=== PATIENT | male | born 1960 | race Hispanic/Latino ===

== ENCOUNTER 2016-12-18 13:58 | Emergency (ER) | payer BC, OTHER ==
[2016-12-18] MEDS ORDERED: Dexamethasone 4 mg/ml Vial ONE (14:30)
[2016-12-18] MEDS ORDERED: Ketorolac Tromethamine 60 MG/2 ML VIAL ONE (14:30)
== END 2016-12-18 14:53 | disposition home or self-care (01) ==
LOC: ERS 13:58
DX: M54.5 Low back pain (principal); I10 Essential (primary) hypertension; Z79.899 Other long term (current) drug therapy
CPT/HCPCS: 96372; J1100; J1885

== ENCOUNTER 2017-08-03 00:18 | Inpatient (IN) | payer BC ==
[2017-08-03] MEDS ORDERED: Heparin 10,000 UNITS/1 ML VIAL ONE ×2 (00:42→01:58)
[2017-08-03] MEDS ORDERED: Lidocaine 1% (PF) 30 ML VIAL ONE (00:43)
[2017-08-03] MEDS ORDERED: Ondansetron ODT 8 MG TAB ONE (00:44)
[2017-08-03] MEDS ORDERED: Ondansetron ODT 4 MG TAB ONE (00:44)
[2017-08-03 00:49] LABS: Prothrombin Time 13.7 SEC (12.0-14.7)
[2017-08-03 00:50] LABS: #Basophils 0.1 thou/uL (0.0-0.2); #Eosinphils 0.2 thou/uL (0.0-0.7); #Lymphocytes 3.9 thou/uL (1.20-3.40); #Monocytes 0.8 thou/uL (0.11-0.59); #Neutrophils 3.9 thou/uL (1.40-6.50); %Basophils 1.2 % (0.0-1.0); %Eosinophils 2.4 % (0.0-10.0); %Lymphocytes 43.4 % (21.0-51.0); %Monocytes 9.2 % (0.0-10.0); %Neutrophils 43.8 % (42.0-75.0); Hemoglobin 16.4 g/dL (14.0-18.0); Mean Corpuscular HGB CONC 34.4 g/dL (32.0-36.0); Mean Corpuscular Hemoglobin 30.5 pg (27.0-31.0); Mean Corpuscular Volume 88.6 fl (80.0-94.0); PTT 28.2 SEC (22.9-36.1); Platelet Count 244 thou/uL (130-400); RBC Distribution Width 12.4 % (11.5-14.5); Red Blood Cell (RBC) Count 5.39 mill/uL (4.70-6.10); White Blood Cell (WBC) Count 8.9 thou/uL (4.8-10.8)
[2017-08-03 00:52] LABS: ALT (SGPT) 32 U/L (8-55); AST (SGOT) 21 U/L (5-34); Albumin 4.4 g/dL (3.5-5.0); Alkaline Phosphatase 80 U/L (40-150); Anion Gap 15 mmol/L (10-20); BUN (Urea Nitrogen) 25 mg/dL (8.4-25.7); Bilirubin, Total 0.4 mg/dL (0.2-1.2); Calc. Creatinine Clearance 0 mL/min (70-130); Calcium 9.4 mg/dL (7.8-10.44); Carbon Dioxide 20 mmol/L (22-29); Chloride 107 mmol/L (98-107); Estimated GFR-MDRD 61; Globulin 3.3 g/dL (2.4-3.5); Glucose 137 mg/dL (70-105); Lipase 31 U/L (8-78); Potassium 4.1 mmol/L (3.5-5.1); Protein, Total 7.7 g/dL (6.0-8.3); Sodium 138 mmol/L (136-145)
[2017-08-03 00:55] LABS: CKMB 0.7 ng/mL (0-6.6); Troponin I 0.037 ng/mL (< 0.028)
[2017-08-03] MEDS ORDERED: DOPamine 400 MG/D5W 250 ML 250 ML ONE (00:56)
[2017-08-03] MEDS ORDERED: Fentanyl 250 MCG/5 ML VIAL ONE ×2 (01:25→05:15)
[2017-08-03] MEDS ORDERED: Midazolam HCl 5 mg/5 ml Vial ONE (01:25)
[2017-08-03] MEDS ORDERED: Papaverine 60 MG/2 ML VIAL ONE (01:29)
[2017-08-03] MEDS ORDERED: Calcium Chloride 1 GM/10 ML Abboject SYRINGE ONE (01:29)
[2017-08-03] MEDS ORDERED: Thrombin 5000 UNITS/5 ML VIAL ONE (01:29)
[2017-08-03] MEDS ORDERED: Sodium Bicarb 50 MEQ/50 ML Abboject 8.4% SYRINGE ONE (01:29)
[2017-08-03] MEDS ORDERED: Heparin 5,000 UNITS/ML VIAL ONE (01:29)
[2017-08-03] MEDS ORDERED: Sodium Chloride 0.9% 1,000 ML BAG ONE (02:00)
[2017-08-03] MEDS ORDERED: Nitroglycerin 0.4 MG TAB (25 Tab Bottle) ONE (02:00)
[2017-08-03] MEDS ORDERED: Heparin 10,000 UNITS/ 10 ML VIAL ONE (02:00)
[2017-08-03] MEDS ORDERED: Phenylephrine 0.25% Nasal Spray 15 ML BOT ONE (04:12)
[2017-08-03] MEDS ORDERED: Phenylephrine 1% Nasal Spray 15 ML BOT ONE (04:12)
[2017-08-03] MEDS ORDERED: Phenylephrine HCL 10 MG/ML VIAL ONE (04:12)
[2017-08-03] MEDS ORDERED: Albumin 5% 500 ML ONE (04:14)
[2017-08-03] MEDS ORDERED: Rocuronium Bromide 50 MG/5 ML VIAL ONE (04:50)
[2017-08-03] MEDS ORDERED: Guaifenesin DM 100-10/5 ML UDCUP PO PRN (05:20)
[2017-08-03] MEDS ORDERED: Magnesium 2 GM/NS 0.9% 100 ML 2 GM in Premix Bag 1 BAG IVPB SCH (05:20)
[2017-08-03] MEDS ORDERED: Mag-Al 1200 mg/1200 mg/30 ML UDCUP PO PRN (05:20)
[2017-08-03] MEDS ORDERED: Hetastarch 6% 500 ML 500 ML IVPB PRN (05:20)
[2017-08-03] MEDS ORDERED: Post-Op Insulin Drip Protocol IVPB ONE (05:20)
[2017-08-03] MEDS ORDERED: Bisacodyl 5 MG TAB PO PRN (05:20)
[2017-08-03] MEDS ORDERED: Ondansetron HCl/PF 4 MG/2 ML Vial IVP PRN (05:20)
[2017-08-03] MEDS ORDERED: Promethazine HCl 25 MG/ML VIAL IM PRN (05:20)
[2017-08-03] MEDS ORDERED: Nitroglycerin 50 MG/250 ML BOT 250 ML IVPB PRN (05:20)
[2017-08-03] MEDS ORDERED: hydrALAZINE 20 MG/ML VIAL SLOW IVP PRN (05:20)
[2017-08-03] MEDS ORDERED: Bisacodyl 10 MG SUPP PR PRN (05:20)
[2017-08-03] MEDS ORDERED: Acetaminophen 325 MG TAB PO PRN (05:20)
[2017-08-03] MEDS ORDERED: Fentanyl 100 MCG/2 ML VIAL SLOW IVP PRN ×2 (05:20)
[2017-08-03] MEDS ORDERED: DOPamine 400 MG/D5W 250 ML 250 ML IVPB PRN (05:20)
[2017-08-03] MEDS ORDERED: Dextrose 5% in Water 1,000 ML IV PRN (05:52)
[2017-08-03] MEDS ORDERED: Dextrose 50% Abboject 50 ML SYRINGE SLOW IVP PRN (05:52)
[2017-08-03 05:58] LABS: INR-International Normal Ratio 1.4; PTT 36.5 SEC (22.9-36.1)
[2017-08-03 05:59] VITALS: BMI 31.5
[2017-08-03 06:02] LABS: Anion Gap 11 mmol/L (10-20); BUN (Urea Nitrogen) 22 mg/dL (8.4-25.7); Calc. Creatinine Clearance 104 mL/min (70-130); Carbon Dioxide 23 mmol/L (22-29); Chloride 112 mmol/L (98-107); Estimated GFR-MDRD 76; Glucose 153 mg/dL (70-105); Sodium 142 mmol/L (136-145)
[2017-08-03 06:17] LABS: Band 29 % (5-11); Hemoglobin 14.7 g/dL (14.0-18.0); Lymphocytes 13 % (21-51); MDiff Complete? YES; Mean Corpuscular HGB CONC 33.7 g/dL (32.0-36.0); Mean Corpuscular Hemoglobin 30.2 pg (27.0-31.0); Mean Corpuscular Volume 89.5 fl (80.0-94.0); Mean Platelet Volume 7.6 fL (7.4-10.4); Monocytes 1 % (0-10); Neutrophil 57 % (42-75); PLT Morphology Comment Appears Adequate; Platelet Count 174 thou/uL (130-400); RBC Distribution Width 12.3 % (11.5-14.5); Red Blood Cell (RBC) Count 4.87 mill/uL (4.70-6.10); White Blood Cell (WBC) Count 22.4 thou/uL (4.8-10.8)
[2017-08-03] MEDS: Insulin Regular 300 UNITS/3 ML VIAL SC PRN ×5 (06:19→23:17)
[2017-08-03] MEDS: CEFAZOLIN/Water 2 GM/20 ML SYRINGE SLOW IVP SCH ×3 (06:21→21:51)
[2017-08-03] MEDS: Lactated Ringer's 1,000 ML IV SCH ×3 (06:25→22:23)
[2017-08-03] MEDS: Potassium Chloride 20 MEQ/100 ML PREMIX BAG IVPB PRN (06:45)
--- NOTE | 2017-08-03 08:06 | OP ---
PREOPERATIVE DIAGNOSIS: Acute myocardial infarction cardiogenic shock. PROCEDURE PERFORMED: Coronary artery bypass graft x3; good quality saphenous vein to the ramus, 2 mm ; the first diagonal, 2 mm; the second diagonal, 2 mm. The distal LAD was too small to graft and masha eared to be less than 1 mm where it became extra myocardial. SURGEON: Beny Leyva M.D. INSURANCE FOLLOW UP SPECIALIST: Dr. Travis. TRANSFUSION: None. PROCEDURE IN DETAIL: After emergently taking the patient from the cardiac catheterization lab with r ight femoral intraaortic balloon pump in place, he was anesthetized, prepped and draped and a midline sternotomy incision carried out. Dr. Travis did an open left greater saphenous vein harvest. After opening the pericardium, the patient was heparinized. Aorta and right atrium were cannulated. Cardi opulmonary bypass was started and vessels were inspected for grafting. The aorta was cross-clamped a nd a liter of cold blood cardioplegia given through the aortic root. Initially, the LAD was inspecte d and dissected out partially dividing some muscle fibers and at that point, it was felt that risk of cavity entry was a real concern and that was abandoned at that point. Individually, the first diago nal, the ramus extending onto the first branch and then the second diagonal were opened and end-to-si de anastomosis completed. Crossclamp was removed and the partial occluding clamp placed, and 3 proxi mal anastomoses performed on the aortic root and marked with rings. The patient was then weaned from cardiopulmonary bypass, cannulas removed. Protamine given systemically and aortic cannulation site secured with a 4-0 Prolene suture. Mediastinal drains x2 were placed following which the sternum was reapproximated with #7 interrupted wire using vancomycin paste on the sternal edges, platelet rich b lood, and platelet-poor plasma. Subcutaneous tissue and skin were closed in layers. The patient is to be taken to the ICU in guarded condition.
[2017-08-03 08:17] LABS: Actual Bicarbonate (HCO3a) 22.9 mEq/L (22-28); Base Excess (BEa) -2.9 mEq/L (-2.0 to +3.0); CO2 Tension 43.5 mmHg (35.0-45.0); Calcium, Ionized 1.1 mmol/L (1.12-1.30); Hematocrit-ABG 43.9 % (42.0-52.0); Hemoglobin (Hb) 14.9 g/dL (14.0-18.0); O2 Tension (PaO2) 183.6 mmHg (80.0-100.0); Puncture Site ALINE; pH, Arterial 7.34 (7.35-7.45)
[2017-08-03 08:18] LABS: ALV-art Gradient 475.025 (0-20)
[2017-08-03] MEDS: Norepinephrine 8 MG/0.9% NS 250 ML IVPB PRN (08:29)
[2017-08-03] MEDS: Aspirin 325 MG TAB PO SCH (08:53)
[2017-08-03] MEDS: Famotidine/PF 20 mg/2ml Vial SLOW IVP SCH ×2 (09:23→20:09)
--- NOTE | 2017-08-03 09:31 | HP ---
HISTORY: Mr. Ramon Alcaraz is a 57-year-old male who denies any previous cardiac problems or chest discomfort. Tonight at approximately midnight, he was going to bed and he had onset of crushing chest pressure. When he came to the emergency room, he was pale and diaphoretic. Upon my arrival, his pressure was in the 50s. Dopamine was being started. He then received heparin 5000 units. Patient was very uncooperative and not much history or discussion could be held. The decision was made to take him emergently to the [facility]. PAST MEDICAL HISTORY: Hypertension. He denied any history of diabetes or hypercholesterolemia. MEDICATIONS: Unknown blood pressure medicine. ALLERGIES: None. OPERATIONS: None. SOCIAL HISTORY: Denies smoking or any illicit drugs or alcohol. FAMILY HISTORY: Father of GA at age 80. REVIEW OF SYSTEMS: Unable to obtain due to the patient's critical status. PHYSICAL EXAMINATION: VITAL SIGNS: Blood pressure was in the 50s, pulse of 100. HEENT: PERRL. CHEST: Clear. CARDIAC: S1, S2 normal without any S3, S4 or murmurs. ABDOMEN: Normal bowel sounds. EXTREMITIES: Revealed no edema. NEUROLOGIC: Grossly intact. LABORATORY DATA AND IMAGING: EKG revealed initially [address] segment elevation, V3 through V5. Another EKG revealed 9 mm of elevation in V2, 7-8 mm in V3 through V5, one in L, one with severe ST segment depression in II, III, and F. IMPRESSION: 1. Acute anterolateral myocardial infarction. 2. Hypertension. 3. Positive family history. PLAN: Patient was very uncooperative. No discussion could be held regarding catheterizations, felt best with his pressure in the 50s systolic to go immediately to the [facility]. IZABELLA
--- NOTE | 2017-08-03 10:01 | RAD ---
PORTABLE CHEST: Date: 08/03/17 HISTORY: Postop open heart surgery. COMPARISON: Earlier exam from same date. FINDINGS: Endotracheal tube in satisfactory position. Right subclavian line overlies the right atrium. Postop s ternotomy changes are seen. Heart size is borderline. Mild vascular engorgement. No overt edema. IMPRESSION: 1. Postop sternotomy change. 2. Endotracheal tube in satisfactory position. POS: [facility]
--- NOTE | 2017-08-03 10:21 | RAD ---
PORTABLE CHEST: Date: 08/03/17 HISTORY: Chest pain. COMPARISON: 04/08/16 study. FINDINGS: Heart size and mediastinum are within normal limits. Lungs are clear of infiltrates. No significant b hannah findings. IMPRESSION: No active intrathoracic disease. POS: [facility]
[2017-08-03 10:59] LABS: Cardiac Risk 4.6 (Less than 4.5)
[2017-08-03 11:12] LABS: CKMB 48.8 ng/mL (0-6.6); Troponin I 6.202 ng/mL (< 0.028)
[2017-08-03] MEDS ORDERED: Iopamidol 370 76% 100 ML VIAL ONE (11:31)
[2017-08-03] MEDS ORDERED: Succinylcholine Chloride 20 MG/ML 10 ml SYRINGE FS ONE (11:54)
[2017-08-03] MEDS ORDERED: ePHEDrine/0.9% NaCl/PF SYRINGE 50 mg/10 ml ONE (11:54)
[2017-08-03] MEDS ORDERED: PHENYLEPHRINE-NS 100 MCG/ML 10 ML SYRINGE ONE (11:54)
[2017-08-03] MEDS ORDERED: Magnesium 5 GM/10 ML VIAL ONE (11:54)
[2017-08-03] MEDS ORDERED: Potassium Chlo 10 mEq/5 ml Syr ONE (11:54)
[2017-08-03] MEDS ORDERED: Lidocaine 2% PF 100 mg/5 ml Syringe ONE (11:54)
[2017-08-03] MEDS ORDERED: Mannitol 12.5 GM/50 ML ONE (11:54)
[2017-08-03] MEDS ORDERED: EPINEPHrine 1 MG/ML AMP ONE (11:54)
[2017-08-03] MEDS ORDERED: Heparin 30,000 units/30 ml VIAL ONE (11:54)
[2017-08-03] MEDS ORDERED: Cardioplegic Soln 1,000 ML BAG ONE (11:54)
[2017-08-03] MEDS ORDERED: Protamine Sulfate 250 MG/25 ML VIAL ONE (11:54)
[2017-08-03] MEDS ORDERED: Sodium Bicarb 50 MEQ/50 ML VIAL ONE (11:54)
--- NOTE | 2017-08-03 12:10 | CON ---
DATE OF CONSULTATION: 08/03/2017 Forty-five minutes critical care time. CONSULTING PHYSICIAN: Dr. Gaspar. REASON FOR CONSULTATION: Postoperative ventilator management. HISTORY OF PRESENT ILLNESS: This is a pleasant 57-year-old male who underwent emergent coronary vesna ry bypass grafting surgery last night for multivessel coronary disease. He was left on a balloon pum p after surgery. He was also left intubated after surgery. He is currently awake and able to follow commands and the plan is to go ahead and wean him. PAST MEDICAL HISTORY: Hypertension. PAST SURGICAL HISTORY: None. MEDICATIONS: He was on some type of blood pressure medication prior to admission. ALLERGIES: None. SOCIAL HISTORY: Nonsmoker, does not consume alcohol. FAMILY MEDICAL HISTORY: Remarkable for coronary disease in his father. REVIEW OF SYSTEMS: Unobtainable as the patient is currently intubated on mechanical ventilation. PHYSICAL EXAMINATION: VITAL SIGNS: Temperature 98.8, pulse 107, blood pressure 100/54. GENERAL: He is currently on no vasopressor therapy. HEENT: Unremarkable. NECK: No JVD. LUNGS: Clear without wheezing or rhonchi. CARDIAC: S1, S2 regular. His heart sounds are somewhat muffled by the balloon pump. ABDOMEN: Soft, obese, nontender. EXTREMITIES: No clubbing, cyanosis, or edema. NEUROLOGIC: He moves all 4 extremities. His x-ray shows properly placed endotracheal tube. He has a right subclavian triple lumen catheter a nd his lung field shows some mild pulmonary vascular congestion. LABORATORY X-RAY FINDINGS: White blood cell count 22.4, hematocrit 43.6, platelet count 174. INR 1. 4, PTT 36.5, pH 7.34, pCO2 43, pO2 183 on SIMV rate 12, tidal of 550, PEEP 5, pressure support 10, Fi O2 100%. Sodium 142, potassium 4, chloride 112, CO2 23, BUN 22, creatinine 1.0, glucose 153. ASSESSMENT: 1. Postoperative respiratory failure. 2. Status post emergent coronary bypass grafting surgery. PLAN: Dr. Leyva has given okay to wean the patient and extubate per protocol. The balloon pump will likely be removed afterward. I have reviewed the orders in the chart and I agree with current manag ement. We will follow.
[2017-08-03 12:22] LABS: Hemoglobin 13.6 g/dL (14.0-18.0)
[2017-08-03 12:32] LABS: Potassium 4.4 mmol/L (3.5-5.1)
[2017-08-03 12:49] LABS: CKMB 120.7 ng/mL (0-6.6); Troponin I 23.282 ng/mL (< 0.028)
[2017-08-03 15:59] LABS: Actual Bicarbonate (HCO3a) 21.4 mEq/L (22-28); Base Excess (BEa) -2.5 mEq/L (-2.0 to +3.0); CO2 Tension 34.1 mmHg (35.0-45.0); O2 Tension (PaO2) 86.1 mmHg (80.0-100.0); pH, Arterial 7.42 (7.35-7.45)
[2017-08-03 16:00] LABS: Calcium, Ionized 1.1 mmol/L (1.12-1.30)
[2017-08-03 16:01] LABS: ALV-art Gradient 156.475 (0-20); Puncture Site ALINE
[2017-08-03] MEDS: HYDROcodone/Acetaminophen 5/325 mg Tablet PO PRN (19:20)
[2017-08-03 20:12] LABS: CKMB 87.4 ng/mL (0-6.6); Troponin I 40.195 ng/mL (< 0.028)
[2017-08-03] MEDS ORDERED: Simvastatin 20 MG TAB PO SCH (21:00)
[2017-08-04 04:59] LABS: #Lymphocytes 1.4 thou/uL (1.20-3.40); #Monocytes 0.9 thou/uL (0.11-0.59); #Neutrophils 8.6 thou/uL (1.40-6.50); %Basophils 0.2 % (0.0-1.0); %Eosinophils 0.2 % (0.0-10.0); %Lymphocytes 12.9 % (21.0-51.0); %Monocytes 8.1 % (0.0-10.0); %Neutrophils 78.5 % (42.0-75.0); Hemoglobin 11.9 g/dL (14.0-18.0); Mean Corpuscular HGB CONC 34.4 g/dL (32.0-36.0); Mean Corpuscular Volume 90.2 fl (80.0-94.0); Mean Platelet Volume 8.3 fL (7.4-10.4); Platelet Count 128 thou/uL (130-400); RBC Distribution Width 12.6 % (11.5-14.5); Red Blood Cell (RBC) Count 3.85 mill/uL (4.70-6.10)
[2017-08-04 06:07] LABS: Anion Gap 10 mmol/L (10-20); BUN (Urea Nitrogen) 16 mg/dL (8.4-25.7); Calc. Creatinine Clearance 134 mL/min (70-130); Carbon Dioxide 21 mmol/L (22-29); Chloride 111 mmol/L (98-107); Estimated GFR-MDRD Greater than 90; Glucose 128 mg/dL (70-105); Sodium 138 mmol/L (136-145)
[2017-08-04] MEDS: Insulin Regular 300 UNITS/3 ML VIAL SC PRN (06:11)
[2017-08-04] MEDS: Potassium Chloride 20 MEQ/100 ML PREMIX BAG IVPB PRN (06:11)
[2017-08-04] MEDS: HYDROcodone/Acetaminophen 5/325 mg Tablet PO PRN ×2 (06:30→18:43)
[2017-08-04] MEDS: Lactated Ringer's 1,000 ML IV SCH ×2 (06:43→18:00)
--- NOTE | 2017-08-04 08:21 | PRG ---
DATE OF SERVICE: 08/04/2017 SUBJECTIVE: Mr. Alcaraz was extubated yesterday. He still has a balloon pump in, but is currently 1-3 . It is anticipated that will be removed later today. PHYSICAL EXAMINATION: VITAL SIGNS: On exam, temperature is 99.5, pulse 100, blood pressure 123/72. A 24-hour intake 4500 and output 2395. HEENT: Unremarkable. NECK: No JVD. LUNGS: Diminished breath sounds in the bases. CARDIOVASCULAR: S1 and S2, regular, no murmur. Balloon pump sounds noted. ABDOMEN: Soft, obese, nontender. EXTREMITIES: No clubbing or cyanosis. Trace edema. LABORATORY DATA: Chest x-ray demonstrates some mild pulmonary edema with bilateral pleural effusions . White blood cell count 11, hematocrit 34.7, platelet count 128. Sodium 130, potassium 4, chloride 111, CO2 of 21, BUN 16, creatinine 0.8, glucose 128. ASSESSMENT: 1. Status post coronary artery bypass grafting surgery. 2. Hyperglycemia. 3. Myocardial infarction. 4. Pulmonary edema. PLAN: The patient will need some diuresis when it is considered safe from a surgical standpoint. He has borderline O2 sats on the supplemental oxygen. I think this will improve as his pulmonary edema improves. A balloon pump should be pulled later today.
--- NOTE | 2017-08-04 09:06 | RAD ---
PORTABLE AP CHEST XRAY: DATE: 08/04/17. HISTORY: Post open heart surgery. COMPARISON: 08/03/17. FINDINGS: The endotracheal tube has been removed. The right subclavian central venous catheter and mediastinal drains remain in place and unchanged in position. There are small bilateral pleural effusions great er on the right. Cardiac silhouette is magnified by projection but overall stable in size given diff erences in technique. Central pulmonary vasculature is mildly prominent. Postsurgical changes relat ed to CABG are again noted. Metallic density again overlies the proximal descending thoracic aorta w hich may represent intraaortic balloon pump. No other interval change. IMPRESSION: 1. Interval removal of endotracheal tube. Remaining lines and tubes are stable in position. 2. Suggestion of small bilateral pleural effusions with associated atelectasis. 3. Mild prominence of the central pulmonary vasculature. POS: [facility]
[2017-08-04] MEDS: Aspirin 325 MG TAB PO SCH (09:41)
[2017-08-04] MEDS: Famotidine 20 MG TAB PO SCH ×2 (09:43→20:28)
[2017-08-04] MEDS ORDERED: DOBUTamine 500 mg/250 ml 500 MG in Premix Bag 1 BAG IVPB SCH (12:45)
[2017-08-04] MEDS: Norepinephrine 8 MG/0.9% NS 250 ML IVPB PRN (18:01)
[2017-08-04] MEDS: Atorvastatin Calcium 20 MG TAB PO SCH (20:28)
[2017-08-05 03:50] LABS: #Eosinphils 0.1 thou/uL (0.0-0.7); #Lymphocytes 1.4 thou/uL (1.20-3.40); #Monocytes 1.2 thou/uL (0.11-0.59); #Neutrophils 9.7 thou/uL (1.40-6.50); %Basophils 0.3 % (0.0-1.0); %Eosinophils 0.6 % (0.0-10.0); %Lymphocytes 10.9 % (21.0-51.0); %Monocytes 9.8 % (0.0-10.0); %Neutrophils 78.4 % (42.0-75.0); Hemoglobin 11.8 g/dL (14.0-18.0); Mean Corpuscular HGB CONC 35.3 g/dL (32.0-36.0); Mean Corpuscular Hemoglobin 31.6 pg (27.0-31.0); Mean Corpuscular Volume 89.6 fl (80.0-94.0); Mean Platelet Volume 7.6 fL (7.4-10.4); Platelet Count 111 thou/uL (130-400); RBC Distribution Width 12.1 % (11.5-14.5); Red Blood Cell (RBC) Count 3.74 mill/uL (4.70-6.10); White Blood Cell (WBC) Count 12.4 thou/uL (4.8-10.8)
[2017-08-05 04:02] LABS: Anion Gap 9 mmol/L (10-20); BUN (Urea Nitrogen) 15 mg/dL (8.4-25.7); Calc. Creatinine Clearance 151 mL/min (70-130); Calcium 8.1 mg/dL (7.8-10.44); Carbon Dioxide 25 mmol/L (22-29); Chloride 107 mmol/L (98-107); Estimated GFR-MDRD Greater than 90; Glucose 136 mg/dL (70-105); Potassium 3.8 mmol/L (3.5-5.1); Sodium 137 mmol/L (136-145)
[2017-08-05] MEDS: Potassium Chloride 20 MEQ/100 ML PREMIX BAG IVPB PRN (04:38)
[2017-08-05] MEDS: HYDROcodone/Acetaminophen 5/325 mg Tablet PO PRN ×4 (05:00→21:08)
[2017-08-05] MEDS ORDERED: Lidocaine 1% (PF) 30 ML VIAL ONE (07:34)
--- NOTE | 2017-08-05 07:39 | PRG ---
DATE OF SERVICE: 07/26/2017 The patient remains on balloon pump. He has done well otherwise. PHYSICAL EXAMINATION: VITAL SIGNS: Temperature 98.2, pulse 101, blood pressure 129/64. He is on Levophed at 7 mcg per min jas. HEENT: Unremarkable. NECK: No JVD. LUNGS: Clear. CARDIAC: S1 and S2 muffled by the balloon pump sounds. ABDOMEN: Soft, nontender. EXTREMITIES: No edema. LABORATORY DATA: White blood cell count 12, hematocrit 33.5, platelet count 111. Sodium 137, potass ium 3.8, chloride 107, CO2 25, BUN 50, creatinine 0.7, glucose 136. Chest x-ray shows bilateral effusions. The pulmonary edema has improved. ASSESSMENT: 1. Status post acute respiratory failure in the perioperative period. 2. Status post coronary bypass grafting surgery. 3. Mild hyperglycemia. 4. Myocardial infarction. 5. Pulmonary edema. PLAN: He seems to be doing well. It is expected that his Levophed will be turned off and his balloo n pump will be removed later today. Hopefully he will be able to tolerate diuresis once the balloon pump is removed.
[2017-08-05] MEDS ORDERED: Lidocaine 1% (PF) 30 ML VIAL FS SCH (07:45)
[2017-08-05] MEDS: Famotidine 20 MG TAB PO SCH ×2 (09:24→21:08)
[2017-08-05] MEDS: Aspirin 325 MG TAB PO SCH (09:24)
--- NOTE | 2017-08-05 09:43 | RAD ---
PORTABLE AP CHEST RADIOGRAPH: Date: 08-05-17 History: Post open heart surgery. Comparison: 08-04-17 FINDINGS: Post-surgical changes related to CABG are noted. Left subclavian central venous catheter and mediasti nal drain remain in place. Previously noted metallic density overlying the proximal descending thora cic aorta near the aortic arch now overlies the more distal ascending thoracic aorta. Atelectasis and multiple tiny right pleural effusion are present. There is improved aeration at the left lung base a s well as the right lung base compared to the prior exam, probably related to improving atelectasis. Cardiac silhouette is magnified by projection but probably mildly enlarged. Pulmonary vasculature is borderline increased but also mildly improved. IMPRESSION: 1. Improvement in bibasilar atelectasis with persistent atelectasis in the right lung base and questi onable tiny right pleural effusion. 2. Improvement in pulmonary vascular congestion. POS: [facility]
[2017-08-05] MEDS: Atorvastatin Calcium 20 MG TAB PO SCH (21:08)
[2017-08-06] MEDS: HYDROcodone/Acetaminophen 5/325 mg Tablet PO PRN ×3 (04:26→23:17)
[2017-08-06 05:01] LABS: #Basophils 0.1 thou/uL (0.0-0.2); #Eosinphils 0.2 thou/uL (0.0-0.7); #Lymphocytes 1.8 thou/uL (1.20-3.40); #Monocytes 0.8 thou/uL (0.11-0.59); #Neutrophils 5.5 thou/uL (1.40-6.50); %Basophils 0.7 % (0.0-1.0); %Eosinophils 2.3 % (0.0-10.0); %Lymphocytes 21.6 % (21.0-51.0); %Monocytes 9.8 % (0.0-10.0); %Neutrophils 65.6 % (42.0-75.0); Hemoglobin 11.4 g/dL (14.0-18.0); Mean Corpuscular HGB CONC 34.7 g/dL (32.0-36.0); Mean Corpuscular Hemoglobin 30.8 pg (27.0-31.0); Mean Platelet Volume 7.8 fL (7.4-10.4); Platelet Count 123 thou/uL (130-400); RBC Distribution Width 12.2 % (11.5-14.5); Red Blood Cell (RBC) Count 3.69 mill/uL (4.70-6.10); White Blood Cell (WBC) Count 8.4 thou/uL (4.8-10.8)
[2017-08-06 05:23] LABS: Anion Gap 10 mmol/L (10-20); BUN (Urea Nitrogen) 16 mg/dL (8.4-25.7); Calc. Creatinine Clearance 135 mL/min (70-130); Calcium 8.3 mg/dL (7.8-10.44); Carbon Dioxide 26 mmol/L (22-29); Chloride 106 mmol/L (98-107); Estimated GFR-MDRD Greater than 90; Glucose 93 mg/dL (70-105); Potassium 3.6 mmol/L (3.5-5.1); Sodium 138 mmol/L (136-145)
--- NOTE | 2017-08-06 08:04 | PRG ---
DATE OF SERVICE: 08/06/2017 The patient is doing well. Balloon pump was removed yesterday. He has no pain, he is breathing okay . PHYSICAL EXAMINATION: VITAL SIGNS: Temperature is 98.3, pulse 94, blood pressure 103/68. HEENT: Unremarkable. NECK: No JVD. CHEST: Clear. CARDIAC: S1 and S2 regular. ABDOMEN: Soft. EXTREMITIES: No edema. LABORATORY DATA: White blood cell count 8.4, hematocrit 32.9, platelet count 123. Sodium 130, potas sium 3.6, chloride 106, CO2 26, BUN 16, creatinine 0.7, glucose 93. ASSESSMENT: Status post coronary artery bypass graft with prolonged mechanical ventilation and ballo on pump. PLAN: He is extubated, balloon pump is out. It is mainly a rehab issue at this point. I expect he will be transferred out of the CCU today. Pulmonary will sign off. Please recall if further assista nce needed.
[2017-08-06] MEDS: Aspirin 325 MG TAB PO SCH (09:09)
[2017-08-06] MEDS: Famotidine 20 MG TAB PO SCH ×3 (09:09→19:47)
[2017-08-06] MEDS ORDERED: Guaifenesin DM 100-10/5 ML UDCUP PO PRN (09:11)
[2017-08-06] MEDS ORDERED: HYDROcodone/Acetaminophen 5/325 mg Tablet PO PRN (09:11)
[2017-08-06] MEDS ORDERED: Mag-Al 1200 mg/1200 mg/30 ML UDCUP PO PRN (09:11)
[2017-08-06] MEDS ORDERED: Mineral Oil ENEMA PR PRN (09:11)
[2017-08-06] MEDS ORDERED: Bisacodyl 10 MG SUPP PR PRN (09:11)
[2017-08-06] MEDS ORDERED: Nitroglycerin 0.4 MG TAB (25 Tab Bottle) SL PRN (09:11)
[2017-08-06] MEDS ORDERED: Milk Of Magnesia 30 ML UDCUP PO PRN (09:11)
[2017-08-06] MEDS ORDERED: Bisacodyl 5 MG TAB PO PRN (09:11)
[2017-08-06] MEDS ORDERED: Acetaminophen 325 MG TAB PO PRN (09:11)
[2017-08-06] MEDS ORDERED: Ondansetron HCl/PF 4 MG/2 ML Vial IVP PRN (09:11)
[2017-08-06] MEDS: Aspirin 325 mg Enteric Coated Tablet PO SCH (09:32)
[2017-08-06] MEDS ORDERED: Furosemide 40 MG TAB PO SCH (09:45)
[2017-08-06] MEDS: Furosemide 40 MG TAB PO SCH (09:45)
[2017-08-06] MEDS: Atorvastatin Calcium 20 MG TAB PO SCH (19:48)
[2017-08-07] MEDS: HYDROcodone/Acetaminophen 5/325 mg Tablet PO PRN (06:03)
[2017-08-07] MEDS: Famotidine 20 MG TAB PO SCH ×2 (08:58→20:33)
[2017-08-07] MEDS: Carvedilol 3.125 MG TAB PO SCH ×2 (08:58→17:33)
[2017-08-07] MEDS: Furosemide 40 MG TAB PO SCH (08:58)
[2017-08-07] MEDS: Aspirin 325 mg Enteric Coated Tablet PO SCH (08:58)
[2017-08-07] MEDS: Potassium Chloride 10 MEQ TAB PO SCH (08:58)
[2017-08-07] MEDS: Amiodarone 200 MG TAB PO SCH ×2 (15:32→20:34)
--- NOTE | 2017-08-07 15:32 | PQF ---
CLINICAL DOCUMENTATION IMPROVEMENT CLARIFICATION FORM: ICD-10 Updated PLEASE DO AN ADDENDUM TO THE PROGRESS NOTE WITH ANY DOCUMENTATION UPDATES OR ADDITIONS AND CARRY THROUGH TO DC SUMMARY. THANK YOU. DATE: 08/07/17 ATTN: Dr. Nelson Please exercise your independent, professional judgment in responding to the clarification form. Clinical indicators are provided on the bottom of this form for your review Please check appropriate box(s): [ ] Respiratory failure not related to surgical procedure [ ] Acute [ ] Chronic [ ] Acute on chronic [ ] Post-op Acute pulmonary insufficiency related to Thoracic surgery. [ ] Post-op Acute respiratory failure related to Thoracic surgery. [ x] Length of Ventilator management as a part of normal recovery, usual and customary for procedure [ ] Other diagnosis [ ] Unable to determine In addition, please specify: Present on Admission (POA): [ ] Yes [ x ] No [ ] Unable to determine For continuity of documentation, please document condition throughout progress notes and discharge summary. Thank You. CLINICAL INDICATORS - SIGNS / SYMPTOMS / LABS PULMONOLOGY CONSULT 08/03: POSTOPERATIVE RESPIRATORY FAILURE S/P EMERGENT CORONARY BYPASS GRAFTING SURGERY RISKS: PULMONOLOGY CONSULT 08/03: 57 YO MALE WHO UNDERWENT EMERGENT CORONARY ARTERY BYPASS GRAFTING SURGERY LAST NIGHT FOR MULTIVESSEL CORONARY DISEASE. HE WAS LEFT ON A BALLOON PUMP AFTER SURGERY. HE WAS ALSO LEFT INTUBATED AFTER SURGERY. TREATMENT: PULMONOLOGY CONSULT FOR POSTOPERATIVE VENTILATOR MANAGEMENT RESP. THERAPIST: VENT 08/03/17 0520 . EXTUBATED 08/03/17 1540 Thank you, Jesusita (This form is maintained as a part of the permanent medical record) 2015 [employer]. All Rights Reserved Jesusita Marquez RN, BSN [email or web address] Office: [phone] [facility]ITAL[facility]
[2017-08-07] MEDS: Lisinopril 2.5 MG TAB PO SCH (20:34)
[2017-08-07] MEDS: Atorvastatin Calcium 20 MG TAB PO SCH (20:34)
--- NOTE | 2017-08-08 03:02 | CON ---
ELECTROPHYSIOLOGY CONSULTATION DATE OF CONSULTATION: 08/07/2017 REFERRING PHYSICIAN: Zhou Gaspar MD REASON FOR CONSULTATION: Atrial flutter and ischemic cardiomyopathy HISTORY OF PRESENT ILLNESS: Mr. Ramon Alcaraz is a pleasant 57-year-old Latin- [place] male who presented to the hospital with ST elevation MO. He was immediately taken to the labor standards director in a quite unstable condition. While in the labor standards director, he was found to be having an acute anterior lateral MO and eventually the patient was taken by Dr. Leyva for emergent bypass. He had a 3-vessel bypass saphenous vein to the ramus, first diagonal, and second diagonal. He did require balloon pump postoperatively and had some instability. This surgery was performed on 08/03/2017, since then he has successfully weaned off the balloon pump and no longer requires aggressive hemodynamic stabilization; however, on telemetry, the patient did have about a 20-minute episode of atrial flutter with RVR, prompting Electrophysiology consultation. Today, patient is resting comfortably in bed and other than incisional pain and postoperative recovery, he does not have any cardiac concerns or complaints today. REVIEW OF SYSTEMS: A 12-point review of systems was conducted and is negative except that listed above in the HPI. PAST MEDICAL HISTORY: Hypertension. PAST SURGICAL HISTORY: None. MEDICATIONS: Largely unknown. Reportedly, some blood pressure medication. SOCIAL HISTORY: Denies tobacco, alcohol, or drug use. FAMILY HISTORY: Father of a myocardial infarction at age 80. PHYSICAL EXAMINATION: VITAL SIGNS: Most recent vital signs, 98.7, pulse 92, respirations 20, oxygen saturation 95% on room air, blood pressure 124/71. NEUROLOGIC: Patient is alert and oriented. Normocephalic, atraumatic. His speech is clear. His affect is appropriate. LUNGS: Clear to auscultation bilaterally. Respirations are even and unlabored. There is a sternotomy incision present. Dressing is clean, dry, and intact. HEART: Heart rate is irregularly irregular with crisp S1, S2. ABDOMEN: Soft, nontender with positive bowel sounds throughout. EXTREMITIES: Warm and dry to touch without clubbing, cyanosis, or edema. NEUROLOGIC: Grossly intact and nonfocal. DATABASE: Review of telemetry and EKGs all were personally reviewed by Dr. Santizo , largely revealing sinus rhythm, post-bypass. He went into atrial flutter on 08/07 at approximately 9:30 a.m. and converted back to sinus rhythm at 10:00 a.m., heart rate was in approximately 170 beats per minute well out of rhythm. LABORATORY DATA: WBC 8.4, hemoglobin 11.4, hematocrit 32.9, platelet count is 123,000. Chemistries: Sodium 138, potassium 3.6, BUN is 16, creatinine 0.76. IMAGING: Echocardiogram on 08/07/2017, ejection fraction 30-35%, LV moderately depressed. Left atrium is mildly dilated. Normal right atrial size. Normal RV size and function. Chest x-ray on 08/05, improved pulmonary vascular congestion. IMPRESSION: 1. Paroxysmal possibly typical atrial flutter with rapid ventricular response, now back in sinus rhythm. 2. Recent myocardial infarction and emergent coronary artery bypass grafting. 3. Newly found reduced ejection fraction, LVEF 30-35%. 4. IABP use post-bypass. PLAN: I have added amiodarone loading dose to 400 mg p.o. t.i.d. to his medical regimen. Consider radiofrequency ablation if recurrence is seen. Regarding his cardiomyopathy, agree with moving forward with LifeVest and medical management with reevaluation of ejection fraction in 3 months to evaluate for the need for an ICD if EF remains less than or equal to 35%. Thank you for allowing us to participate in the care of this patient. This report is dictated as a scribe for Dr. Khang Santizo. IZABELLA
[2017-08-08] MEDS: HYDROcodone/Acetaminophen 5/325 mg Tablet PO PRN (06:35)
[2017-08-08] MEDS: Famotidine 20 MG TAB PO SCH ×2 (08:04→20:00)
[2017-08-08] MEDS: Furosemide 40 MG TAB PO SCH (08:04)
[2017-08-08] MEDS: Carvedilol 3.125 MG TAB PO SCH ×2 (08:05→16:49)
[2017-08-08] MEDS: Amiodarone 200 MG TAB PO SCH ×3 (08:05→20:01)
[2017-08-08] MEDS: Aspirin 325 mg Enteric Coated Tablet PO SCH (08:05)
[2017-08-08] MEDS: Potassium Chloride 10 MEQ TAB PO SCH (08:05)
--- NOTE | 2017-08-08 13:24 | PDOC.CTH ---
<Allyson Oviedo - Last Filed: 08/08/17 13:21> Cardiology Progress Note - Subjective EP progress note: Patient seen and evaluated. Denies any cardiac concerns or complaints. + back and incisional pain with movement. - Objective Vital Signs Temp Pulse Resp BP BP Pulse Ox 08/08/17 11:40 98.0 F 81 16 100/55 L 94 L 08/08/17 08:00 97.8 F 87 18 08/08/17 07:45 97.8 F 87 18 130/75 92 L 08/08/17 03:49 97.9 F 80 17 110/67 93 L Weight 197 lb 2 oz 08/07/17 08/08/17 08/09/17 06:59 06:59 06:59 Intake Total 2400 1570 Output Total 2650 2125 Balance -250 -555 - Physical Examination General/Neuro: alert & oriented x3, NAD Neck: carotid US brisk, no JVD present Lungs: CTA, unlabored respirations Heart: RRR Abdomen: NT/ND, soft - Telemetry Telemetry Rhythm: NSR - Labs Result Diagrams: 08/06/17 04:45 08/06/17 04:45 Troponin/CKMB CK-MB (CK-2) 87.4 ng/mL (0-6.6) H* 08/03/17 19:33 Troponin I 40.195 ng/mL (< 0.028) H* 08/03/17 19:33 - Assessment/Plan 1. Paroxysmal atrial flutter with RVR, rates 160-180. ~30 minutes episode yesterday. Started on loading dose of amiodarone 400mg PO TID. 2. CAD s/p 3V CABG Plan to continue short term therapy of amiodarone for post operative PAF. Upon DC recommend Amiodarone 200mg TID x 7 days, then 200mg BID x 7 days, then 200mg PO daily. Will see back as outpatient and hopefully can stop AAD after a few months. Signing off. <Khang Santizo - Last Filed: 08/11/17 15:33> Cardiology Progress Note - Objective Weight 190 lb 2 oz 08/10/17 08/11/17 08/12/17 06:59 06:59 06:59 Intake Total 600 Output Total 2200 Balance -1600 - Labs Result Diagrams: 08/06/17 04:45 08/06/17 04:45 Troponin/CKMB CK-MB (CK-2) 87.4 ng/mL (0-6.6) H* 08/03/17 19:33 Troponin I 40.195 ng/mL (< 0.028) H* 08/03/17 19:33 Attending Addendum - Attending Addendum Date/Time: 08/11/17 1541 I personally evaluated the patient and discussed the management with Ms Oviedo. I agree with the History, Examination, Assessment and Plan documented above with any addition or exceptions noted below.
[2017-08-08] MEDS: Lisinopril 2.5 MG TAB PO SCH (20:00)
[2017-08-08] MEDS: Atorvastatin Calcium 20 MG TAB PO SCH (20:00)
[2017-08-09] MEDS: HYDROcodone/Acetaminophen 5/325 mg Tablet PO PRN ×2 (05:59→16:10)
[2017-08-09] MEDS ORDERED: Sodium Chloride 0.9% 10 ML ONE (08:26)
[2017-08-09] MEDS: Famotidine 20 MG TAB PO SCH ×2 (09:34→20:55)
[2017-08-09] MEDS: Carvedilol 3.125 MG TAB PO SCH ×2 (09:35→16:08)
[2017-08-09] MEDS: Amiodarone 200 MG TAB PO SCH ×3 (09:35→20:55)
[2017-08-09] MEDS: Furosemide 40 MG TAB PO SCH (09:35)
[2017-08-09] MEDS: Aspirin 325 mg Enteric Coated Tablet PO SCH (09:35)
[2017-08-09] MEDS: Potassium Chloride 10 MEQ TAB PO SCH (09:35)
--- NOTE | 2017-08-09 10:45 | PDOC.CTH ---
<Arabella Sainz - Last Filed: 08/09/17 10:46> Cardiology Progress Note - Subjective No complaints. Doing well overall. Walking long distances for >10 minutes in lepe. no pain. Refused LifeVest due to cost. - Objective Vital Signs Temp Pulse Resp BP BP Pulse Ox 08/09/17 07:54 98.5 F 77 16 119/70 96 08/09/17 03:54 98.5 F 75 18 95/62 93 L Weight 196 lb 8 oz 08/08/17 08/09/17 08/10/17 06:59 06:59 06:59 Intake Total 1570 860 Output Total 2125 1275 Balance -555 -415 - Physical Examination General/Neuro: alert & oriented x3 Neck: no JVD present Lungs: CTA Heart: RRR Abdomen: NT/ND Extremities: other: (no edema) - Telemetry Telemetry Rhythm: SR - Labs Result Diagrams: 08/06/17 04:45 08/06/17 04:45 Troponin/CKMB CK-MB (CK-2) 87.4 ng/mL (0-6.6) H* 08/03/17 19:33 Troponin I 40.195 ng/mL (< 0.028) H* 08/03/17 19:33 - Assessment/Plan 1. s/p anterolateral STEMI 2. s/p CABG x 3 3. ICMO 4. Atrial Flutter 5. HTN Stable. Looks good for discharge. Patient refused LifeVest due to cost. Understands SCD risk. Continue Amio taper. Ok to go home and f/u in 3-[address] Gaspar. <Bennett Santiago - Last Filed: 08/09/17 15:44> Cardiology Progress Note - Objective Vital Signs Temp Pulse Pulse Pulse Resp BP BP 08/09/17 12:00 98.6 F 74 16 08/09/17 09:31 85 77 122/64 100/57 L 08/09/17 08:00 98.6 F 74 16 08/09/17 07:54 98.5 F 77 16 08/09/17 03:54 98.5 F 75 18 BP BP Pulse Ox Pulse Ox Pulse Ox 08/09/17 12:00 100/74 96 08/09/17 09:31 96 93 L 08/09/17 08:00 96 08/09/17 07:54 119/70 96 08/09/17 03:54 95/62 93 L Weight 196 lb 8 oz 08/08/17 08/09/17 08/10/17 06:59 06:59 06:59 Intake Total 1570 860 Output Total 7625 4785 Balance -084 -054 - Labs Result Diagrams: 08/06/17 04:45 08/06/17 04:45 Troponin/CKMB CK-MB (CK-2) 87.4 ng/mL (0-6.6) H* 08/03/17 19:33 Troponin I 40.195 ng/mL (< 0.028) H* 08/03/17 19:33 - Assessment/Plan Pt seen and examined. Pt doing well post op. Lifevest currently not covered by pts insurance provider. Lifevest rep to come in and discuss further [facility] pt.
[2017-08-09] MEDS: Lisinopril 2.5 MG TAB PO SCH (20:54)
[2017-08-09] MEDS: Atorvastatin Calcium 20 MG TAB PO SCH (20:55)
[2017-08-10] MEDS: HYDROcodone/Acetaminophen 5/325 mg Tablet PO PRN (05:27)
[2017-08-10] MEDS ORDERED: Sodium Chloride 0.9% 10 ML ONE (08:05)
[2017-08-10] MEDS: Aspirin 325 mg Enteric Coated Tablet PO SCH (08:43)
[2017-08-10] MEDS: Carvedilol 3.125 MG TAB PO SCH (08:44)
[2017-08-10] MEDS: Potassium Chloride 10 MEQ TAB PO SCH (08:44)
[2017-08-10] MEDS: Amiodarone 200 MG TAB PO SCH (08:44)
[2017-08-10] MEDS: Furosemide 40 MG TAB PO SCH (08:44)
[2017-08-10] MEDS: Famotidine 20 MG TAB PO SCH (08:44)
[2017-08-10 12:23] VITALS: BP 125/71; TEMP 96.5
--- NOTE | 2017-08-10 19:55 | DIS ---
DATE OF ADMISSION: 08/03/2017 DATE OF DISCHARGE: 08/10/2017 PRINCIPAL DIAGNOSES: Coronary artery disease, acute ST-elevation anterolateral myocardial infarction , and cardiogenic shock. PROCEDURES PERFORMED: Emergent cardiac catheterization, intraaortic balloon pump placement, emergent coronary artery bypass grafting x3 with reverse greater saphenous vein grafts from the aorta to the ramus intermedius, the first diagonal and second diagonal; 08/03/2017. HISTORY OF PRESENT ILLNESS AND HOSPITAL COURSE: The patient is a 57-year-old man who presen frank to the hospital after sudden onset of crushing chest pain. He was pale, diaphoretic, and shocky. He was started on pressors and taken emergently to the general labor to deal with an ST-elevation AR. Jasen apodaca was found to have severe left-sided disease. He was taken emergently to the operating room. His L AD proved to be a small nonbypassable vessel. Veins were used to bypass 2 diagonals and the ramus in termedius. He was gradually weaned off pressor and balloon pump support. He had an EF in the 30%-35 % range plus some atrial arrhythmias. He was started on amiodarone and recommended that he have a Li feVest pending re-evaluation post-revascularization. He is now being discharged home on postop day 7 with a prescription for Vicodin as needed for pain, a miodarone 400 mg t.i.d., Lipitor 20 mg at bedtime, aspirin a day, Coreg 3.125 mg twice a day, Lasix 4 0 mg a day, lisinopril 2.5 mg a day, potassium 10 mEq a day, and he will be fitted with a LifeVest. Followup with Dr. Gaspar and Dr. Leyva will be per them.
== END 2017-08-10 12:35 | disposition home or self-care (01) | DRG 235 ==
LOC: ERS 00:18 → CCL 01:03 → CCU 05:16 → 2NO 08-06 09:53
PROVIDERS: ADMIT Internal Medicine Cardiovascular Disease; ATTEND Internal Medicine Cardiovascular Disease
PROC: 021209W Bypass Coronary Artery, Three Arteries from Aorta with Autologous Venous Tissue, Open Approach (ICD-10-PCS; principal; 2017-08-03)
PROC: 06BQ0ZZ Excision of Left Saphenous Vein, Open Approach (ICD-10-PCS; 2017-08-03)
PROC: 5A02210 Assistance with Cardiac Output using Balloon Pump, Continuous (ICD-10-PCS; 2017-08-03)
PROC: 5A1221Z Performance of Cardiac Output, Continuous (ICD-10-PCS; 2017-08-03)
PROC: B24BZZ4 Ultrasonography of Heart with Aorta, Transesophageal (ICD-10-PCS; 2017-08-03)
PROC: 5A1935Z Respiratory Ventilation, Less than 24 Consecutive Hours (ICD-10-PCS; 2017-08-03)
DX: I21.09 ST elevation (STEMI) myocardial infarction involving other coronary artery of anterior wall (principal); R57.0 Cardiogenic shock; I50.21 Acute systolic (congestive) heart failure; J96.01 Acute respiratory failure with hypoxia; I48.3 Typical atrial flutter; I25.10 Atherosclerotic heart disease of native coronary artery without angina pectoris; E66.9 Obesity, unspecified; Z68.29 Body mass index [BMI] 29.0-29.9, adult; R73.9 Hyperglycemia, unspecified; I25.5 Ischemic cardiomyopathy; I08.1 Rheumatic disorders of both mitral and tricuspid valves; I11.0 Hypertensive heart disease with heart failure; Z79.82 Long term (current) use of aspirin
CPT/HCPCS: 33967; 36415; 36416; 36430; 71045; 80048; 80053; 80061; 82553; 82805; 83690; 84484; 85025; 85347; 85610; 85730; 86850; 86900; 86901; 93005; 93010; 93306; 93454; 93798; 94002; 94760; 96374; A4216; C1769; C1887; J0171; J1250; J1265; J1644; J2001; J2150; J2250; J2270; J2370; J2405; J2440; J2720; J3010; J3370; J3475; J3480; J7050; J7070; P9045; Q0162; S0028

== ENCOUNTER 2017-08-13 19:02 | Emergency (ER) | payer BC ==
[2017-08-13 19:38] LABS: #Basophils 0.1 thou/uL (0.0-0.2); #Eosinphils 0.4 thou/uL (0.0-0.7); #Lymphocytes 1.4 thou/uL (1.20-3.40); #Monocytes 0.6 thou/uL (0.11-0.59); %Basophils 0.5 % (0.0-1.0); %Eosinophils 3.7 % (0.0-10.0); %Lymphocytes 12.4 % (21.0-51.0); %Monocytes 5.5 % (0.0-10.0); %Neutrophils 77.8 % (42.0-75.0); Hemoglobin 14.1 g/dL (14.0-18.0); Mean Corpuscular HGB CONC 34.7 g/dL (32.0-36.0); Mean Corpuscular Hemoglobin 30.7 pg (27.0-31.0); Mean Corpuscular Volume 88.3 fL (78.0-98.0); Mean Platelet Volume 7.1 fL (7.4-10.4); Platelet Count 486 thou/uL (130-400); RBC Distribution Width 12.1 % (11.5-14.5); Red Blood Cell (RBC) Count 4.58 mill/uL (4.70-6.10); White Blood Cell (WBC) Count 11.6 thou/uL (4.8-10.8)
[2017-08-13 19:46] LABS: INR-International Normal Ratio 1.2; PTT 36.5 SEC (22.9-36.1)
[2017-08-13 20:06] LABS: CKMB 0.9 ng/mL (0-6.6); Troponin I 0.095 ng/mL (< 0.028)
[2017-08-13 20:25] LABS: ALT (SGPT) 36 U/L (8-55); AST (SGOT) 22 U/L (5-34); Alkaline Phosphatase 74 U/L (40-150); Anion Gap 12 mmol/L (10-20); BUN (Urea Nitrogen) 33 mg/dL (8.4-25.7); Bilirubin, Total 0.6 mg/dL (0.2-1.2); CK (CPK) 80 U/L (30-200); Calc. Creatinine Clearance 0 mL/min (70-130); Calcium 9.1 mg/dL (7.8-10.44); Carbon Dioxide 22 mmol/L (22-29); Chloride 102 mmol/L (98-107); Estimated GFR-MDRD 55; Globulin 3.2 g/dL (2.4-3.5); Glucose 138 mg/dL (70-105); Potassium 4.3 mmol/L (3.5-5.1); Protein, Total 7.2 g/dL (6.0-8.3); Sodium 132 mmol/L (136-145)
--- NOTE | 2017-08-13 21:33 | RAD ---
RADIOGRAPH CHEST 1 VIEW: Date: 08/13/17 Time: 7:33 p.m. HISTORY: 57-year-old male status post CABG with left upper extremity numbness. COMPARISON: 08/05/17 FINDINGS: Evaluation is limited because of hypoinflated lungs, and due to multiple overlying external electroni c devices. Previously, there was bibasilar atelectasis. This has probably improved, but there is a ne w patchy stellate density at the right medial lung base, which is probably subsegmental atelectasis. Pneumonia and neoplasm are less likely. No pneumothorax. No pulmonary edema. Sternotomy wires. IMPRESSION: 1. Status post open heart surgery. 2. Pulmonary density at the right medial lung base which is favored to be subsegmental atelectas is, but for which followup is recommended to rule out other pathology. GEORGETTE [] POS: [facility]
[2017-08-13] MEDS ORDERED: Acetaminophen 325 MG TAB ONE (21:48)
[2017-08-14 00:27] LABS: Troponin I 0.099 ng/mL (< 0.028)
--- NOTE | 2017-08-16 12:38 | EKG ---
Test Reason : Blood Pressure : / mmHG Vent. Rate : 067 BPM Atrial Rate : 067 BPM P-R Int : 148 ms QRS Dur : 084 ms QT Int : 414 ms P-R-T Axes : 043 052 012 degrees QTc Int : 437 ms Normal sinus rhythm Possible Left atrial enlargement Cannot rule out Anterior infarct , age undetermined Abnormal ECG Confirmed by MARI VELARDE M.D. ([id number]), online content editor FLORENTINO RODRIGUEZ ([id number]) on 08/16/2017 12:38:35 PM Referred By: Confirmed By:MARI VELARDE M.D.
--- NOTE | 2017-08-16 12:39 | EKG ---
Test Reason : Blood Pressure : / mmHG Vent. Rate : 059 BPM Atrial Rate : 059 BPM P-R Int : 152 ms QRS Dur : 084 ms QT Int : 476 ms P-R-T Axes : 039 034 050 degrees QTc Int : 471 ms Sinus bradycardia Cannot rule out Anterior infarct , age undetermined Abnormal ECG No ST elevation/MT Unchanged from previous Confirmed by MARI VELARDE M.D. ([id number]), visual effects editor FLORENTINO RODRIGUEZ ([id number]) on 08/16/2017 12:39:45 PM Referred By: Confirmed By:MARI VELARDE M.D.
== END 2017-08-14 00:38 | disposition home or self-care (01) ==
LOC: ERS 19:02
DX: M25.512 Pain in left shoulder (principal); I10 Essential (primary) hypertension; I25.2 Old myocardial infarction; K76.0 Fatty (change of) liver, not elsewhere classified; Z79.899 Other long term (current) drug therapy; Z79.891 Long term (current) use of opiate analgesic; Z79.82 Long term (current) use of aspirin
CPT/HCPCS: 36415; 71045; 80053; 82553; 84484; 85025; 85610; 85730; 93005; 96360

== ENCOUNTER 2017-08-21 13:00 | Inpatient (IN) | payer BC ==
[2017-08-21 13:39] LABS: Mean Corpuscular HGB CONC 33.9 g/dL (32.0-36.0); Mean Corpuscular Hemoglobin 30.3 pg (27.0-31.0); Mean Corpuscular Volume 89.3 fL (78.0-98.0); Mean Platelet Volume 8.2 fL (7.4-10.4); Platelet Count 436 thou/uL (130-400); RBC Distribution Width 12.2 % (11.5-14.5); Red Blood Cell (RBC) Count 4.95 mill/uL (4.70-6.10); White Blood Cell (WBC) Count 10.7 thou/uL (4.8-10.8)
--- NOTE | 2017-08-21 13:44 | RAD ---
SINGLE VIEW CHEST: Date: 08/21/17 COMPARISON: 08/13/17. HISTORY: Dizziness and syncope. FINDINGS: Single view of the chest shows a normal sized cardiomediastinal silhouette. The patient is status pos t CABG. There is no evidence of consolidation, mass, or pleural effusion. IMPRESSION: No evidence of acute cardiopulmonary disease. POS: [facility]
[2017-08-21 13:46] LABS: ALT (SGPT) 32 U/L (8-55); AST (SGOT) 28 U/L (5-34); Albumin 4.2 g/dL (3.5-5.0); Alkaline Phosphatase 88 U/L (40-150); Anion Gap 12 mmol/L (10-20); BUN (Urea Nitrogen) 26 mg/dL (8.4-25.7); Bilirubin, Total 0.5 mg/dL (0.2-1.2); Calc. Creatinine Clearance 0 mL/min (70-130); Calcium 9.4 mg/dL (7.8-10.44); Carbon Dioxide 23 mmol/L (22-29); Chloride 105 mmol/L (98-107); Estimated GFR-MDRD 53; Globulin 3.5 g/dL (2.4-3.5); Glucose 124 mg/dL (70-105); Potassium 4.4 mmol/L (3.5-5.1); Protein, Total 7.7 g/dL (6.0-8.3); Sodium 136 mmol/L (136-145)
[2017-08-21 14:00] LABS: CKMB 0.7 ng/mL (0-6.6); Troponin I 0.019 ng/mL (< 0.028)
[2017-08-21 14:09] LABS: Band 3 % (5-11); Eosinophils 3 % (0-10); Lymphocytes 10 % (21-51); MDiff Complete? YES; Monocytes 3 % (0-10); Neutrophil 81 % (42-75); PLT Morphology Comment Appears Increased
[2017-08-21] MEDS ORDERED: Senokot 8.6 MG TAB PO PRN ×2 (14:43)
[2017-08-21] MEDS ORDERED: Nitroglycerin 0.4 MG TAB (25 Tab Bottle) SL PRN ×2 (14:43→16:06)
[2017-08-21] MEDS ORDERED: cloNIDine 0.1 MG TAB PO PRN (14:43)
[2017-08-21] MEDS ORDERED: hydrALAZINE 20 MG/ML VIAL SLOW IVP PRN (14:43)
[2017-08-21] MEDS ORDERED: Acetaminophen 325 MG TAB PO PRN (14:43)
[2017-08-21] MEDS ORDERED: Mag-Al 1200 mg/1200 mg/30 ML UDCUP PO PRN (14:43)
[2017-08-21] MEDS ORDERED: Ondansetron HCl/PF 4 MG/2 ML Vial IVP PRN (14:43)
[2017-08-21] MEDS ORDERED: Calcium Carbonate 500 MG ChewTAB PO PRN (14:43)
[2017-08-21] MEDS ORDERED: Bisacodyl 5 MG TAB PO PRN ×2 (14:43)
[2017-08-21] MEDS ORDERED: traMADol HCl 50 MG TAB PO PRN (14:43)
[2017-08-21] MEDS ORDERED: Benzonatate 100 MG CAP PO PRN (14:43)
[2017-08-21] MEDS ORDERED: Diabetic Tussin 200 MG/10 ML UDCUP PO PRN (14:43)
--- NOTE | 2017-08-21 16:23 | HP ---
DATE OF ADMISSION: 08/21/2017 PRIMARY CARE PHYSICIAN: None. CHIEF COMPLAINT: Near syncope and feeling faint and fall resultant to that. HISTORY OF PRESENT ILLNESS: Mr. Alcaraz is a pleasant 57-year-old male with past medical history of re cent admission to our facility from 08/03/2017-08/10/2017. He came to the emergency room with above- mentioned complaint. History is mainly obtained by the patient himself and electronic medical record s have been reviewed. Mr. Alcaraz underwent an acute ST elevation NH last month with associated cardiogenic shock. He was ta avani to the veterinary laboratory technician and was found to have severe left-sided disease, so he was emergently taken to [facility] operating room and underwent a successful 3-vessel bypass. He was found to have EF of 30%-35% with atrial arrhythmias. He was started on amiodarone and was discharged on LifeVest and appropriate car diac prudent medications. He was seen by Dr. Gaspar, Dr. Leyva and Dr. Santizo at that time. He returned to the emergency room on 08/16/2017 complaining of his left arm going numb. Workup was u nremarkable, so he was discharged home with outpatient followup. He came back today again as he was taking the shower, he felt faint and fell down. He reports that h e did not lose consciousness. He reports that he wears his LifeVest as advised. He was not wearing it while he was showering obviously. He denies any shocks delivered to him with a LifeVest. He abilio es any palpitations, chest pain, shortness of breath or lower extremity swelling. He is compliant wi all of his medications. Upon presentation to the ER, he was hemodynamically stable with blood pressure 127/68, pulse of 62, s aturations 97% on room air. Chest x-ray and 12-lead EKG was unremarkable. Cardiac enzymes are normal. Mild elevation in BNP of 223. He is now being admitted to the hospital for further evaluation and care of near syncope, especially just few weeks out from his coronary artery bypass graft and acute ST elevation NH with a new diagnos is of atrial tachycardia and cardiomyopathy. He denies any recent illnesses. No fever, no chills, no nausea, vomiting, diarrhea, abdominal pain. No dysuria, frequency, urgency, or hematuria. PAST MEDICAL HISTORY: 1. Acute ST elevation myocardial infarction status post CABG 3-vessel on 08/03/2017. 2. Hypertension. 3. Ischemic cardiomyopathy. 4. Atrial tachycardia. PAST SURGICAL HISTORY: CABG as above. ALLERGIES: None. CURRENT MEDICATIONS: He is compliant with his medication that he was discharged on and he is on as f olserafin; Klor-Con 10 mg daily, nitroglycerin sublingual as needed, aspirin 81 mg daily, atorvastatin 2 0 mg daily, carvedilol 3.125 mg p.o. b.i.d., Lasix 40 mg daily, lisinopril 2.5 mg daily and amiodaron e 400 mg t.i.d. FAMILY HISTORY: Father had significant NH at the age of 80. No history of stroke or diabetes. REVIEW OF SYSTEMS: Twelve-point review of systems was done. It is negative except for those mention ed in the history and physical. LABORATORY DATA AND IMAGING DATA: CBC shows neutrophils 81%, platelets 436, otherwise unremarkable. Serum chemistry shows BUN 26, creatinine 1.38 with estimated GFR of 53. Blood sugar 124. CK-MB and troponin normal. BNP 223. Chest x-ray by my review has no evidence of pleural effusion, edema or i nfiltrate. A 12-lead EKG actually shows normal sinus rhythm without any evidence of arrhythmias. PHYSICAL EXAMINATION: VITAL SIGNS: Blood pressure 127/68, pulse of 62, respirations 17, saturating 97% on room air, afebri le. HEENT: Mucous membrane is moist and pink. No oropharyngeal exudate or erythema. Head is normocepha lic, atraumatic. Pupils are equal and reactive to light and accommodation. Extraocular movement int act. NECK: Supple without any lymphadenopathy, JVD or bruit. CHEST: Clear to auscultation without any wheezing, rales or rhonchi. Rate and rhythm is regular wit hout any murmur, rubs or gallops. His surgical scar is well healing without any dehiscence or discha rge. He is wearing the LifeVest even now. ABDOMEN: Soft, nontender, nondistended with positive bowel sounds. EXTREMITIES: Without any cyanosis, clubbing, or edema. Vein graft site in the leg are well healing. He still has the steve present in the leg. PSYCHIATRIC: Normal affect. NEUROLOGIC: Examination is nonfocal. SKIN: Free of any rashes or bruises. I feel warm and dry to touch. IMPRESSION AND PLAN: 1. Near syncope, likely multifactorial, but given his recent cardiac history, cardiac arrhythmias an d worsening of cardiomyopathy would need to be ruled out. He will be admitted to telemetry unit and we will reconsult Cardiology and Electrophysiology for possible ablation and/or AICD placement if nec essary. We will repeat the echocardiogram for this reason, though it is still too soon for his cardi ac function to recover. We will trend his serial cardiac enzyme with likelihood of ACS low at this t paige. Most likely, he would need ablation for arrhythmias. We will resume his home medications inclu ding amiodarone. 2. Acute renal insufficiency. Gentle IV fluids will be administered and monitor renal function. Av oid any nephrotoxic medication. 3. Recent ST elevation myocardial infarction. We will resume home medication including aspirin, sta tin, beta jasmyn, SHAUNA inhibitor. 4. History of atrial arrhythmias. Resume amiodarone. We will consult Dr. Santizo again for possible a blation to stay. 5. Ischemic cardiomyopathy. Continue the LifeVest for now. Repeat the echocardiogram. 6. Deep venous thrombosis and gastrointestinal prophylaxis. 7. Code status: FULL CODE. Discussed with the patient. DISPOSITION: Mr. Alcaraz is currently being admitted to the hospital with near syncope and fall result ed to that. He will be monitored on telemetry unit and we will request further recommendations from Cardiology and Electrophysiology for possible ablation and continue his home medications. Estimated length of stay at this time is at least 2-3 midnights depending upon the recommendations from special ists.
[2017-08-21 17:53] VITALS: BMI 28.3
[2017-08-21] MEDS: Sodium Chloride 0.9% 1,000 ML IV SCH (18:17)
[2017-08-21] MEDS: Carvedilol 3.125 MG TAB PO SCH (18:20)
[2017-08-21 18:54] LABS: Troponin I 0.014 ng/mL (< 0.028)
[2017-08-21] MEDS: Amiodarone 200 MG TAB PO SCH (21:19)
[2017-08-21] MEDS: Atorvastatin Calcium 20 MG TAB PO SCH (21:19)
[2017-08-21] MEDS: Lisinopril 2.5 MG TAB PO SCH (21:19)
[2017-08-21 21:38] LABS: Troponin I 0.039 ng/mL (< 0.028)
[2017-08-21 22:23] LABS: Bilirubin Negative (Negative); Blood, Urine Negative (Negative); Clarity CLEAR (Clear); Glucose, Urine (Dipstick) Negative (Negative); Leukocyte Negative (Negative); Nitrite Negative (Negative); Protein, Urine (Dipstick) Negative (Neg-Trace); Specific Gravity, Urine 1.022 (1.002-1.036); pH, Urine 6.5 (5.0-9.0)
[2017-08-21 22:30] LABS: Bacteria/HPF None Seen HPF (None Seen); Hyaline Casts/LPF 0-3 HYALINE CAST LPF (0-3 Hyaline); Pathc Cast-AUWi Flag 0.14 (0-2.49); RBC/HPF 0-3 HPF (0-3); Squamous Epithelial None Seen HPF (0-3); WBC/HPF None Seen HPF (0-3)
[2017-08-22 05:44] LABS: #Basophils 0.1 thou/uL (0.0-0.2); #Eosinphils 0.4 thou/uL (0.0-0.7); #Lymphocytes 2.1 thou/uL (1.20-3.40); #Monocytes 0.5 thou/uL (0.11-0.59); #Neutrophils 3.3 thou/uL (1.40-6.50); %Basophils 1.6 % (0.0-1.0); %Lymphocytes 32.9 % (21.0-51.0); %Monocytes 7.4 % (0.0-10.0); Hemoglobin 12.8 g/dL (14.0-18.0); Mean Corpuscular HGB CONC 32.8 g/dL (32.0-36.0); Mean Corpuscular Hemoglobin 29.7 pg (27.0-31.0); Mean Corpuscular Volume 90.7 fL (78.0-98.0); Mean Platelet Volume 8.3 fL (7.4-10.4); Platelet Count 366 thou/uL (130-400); RBC Distribution Width 12.2 % (11.5-14.5); Red Blood Cell (RBC) Count 4.29 mill/uL (4.70-6.10); White Blood Cell (WBC) Count 6.2 thou/uL (4.8-10.8)
[2017-08-22 05:56] LABS: Anion Gap 10 mmol/L (10-20); BUN (Urea Nitrogen) 22 mg/dL (8.4-25.7); Calc. Creatinine Clearance 88 mL/min (70-130); Calcium 8.6 mg/dL (7.8-10.44); Carbon Dioxide 24 mmol/L (22-29); Chloride 108 mmol/L (98-107); Estimated GFR-MDRD 70; Glucose 91 mg/dL (70-105); Sodium 138 mmol/L (136-145)
[2017-08-22] MEDS: Sodium Chloride 0.9% 1,000 ML IV SCH (06:36)
--- NOTE | 2017-08-22 11:16 | CON ---
DATE OF CONSULTATION: 08/21/2017 ELECTROPHYSIOLOGY CONSULTATION REFERRING PHYSICIAN: Dr. Gonzalez I am seeing Mr. Alcaraz at our [facility] unit as an electrophysiologic field consultant for: 1. Syncopal spell. 2. Chronic systolic congestive heart failure with ischemic cardiomyopathy. A. Recent myocardial infarction on 08/03/2017 requiring urgent heart catheterization and coronary art steve bypass grafting surgery x3 vessels. Cardiogenic shock was also noted. The patient required ball oon pump postop. B. A 2D echo from 08/07/2017 postoperatively with LVEF 30-35%, mild MR and TR noted. 3. Post-bypass atrial flutter, prompting amiodarone loading currently in sinus rhythm. 4. History of hypertension. ALLERGIES: None noted. MEDICATIONS: Prior to admission was a nitroglycerin, amiodarone 400 mg p.o. t.i.d., aspirin, atorvas tatin, carvedilol 3.125 mg twice a day, furosemide, hydrocodone, lisinopril, potassium. SUBJECTIVE: Mr. Alcaraz was at home taking a hot shower and on coming out of the shower, he felt getti ng dizzy and then fainted and passed out. Question whether he completely lost consciousness, althoug h he is usually wearing a LifeVest at this time and taking a shower he was not having it on. He abilio es having palpitations or chest pain associated with the event. Since then he also has no angina, no PND, orthopnea. No lower extremity edema. No fever, chills, cough. He did have a repeat visit in the ER after discharge on 08/10/2017 with left arm numbness, but that q uickly resolved. REVIEW OF SYSTEMS: A 12-point review of systems otherwise unremarkable. PAST MEDICAL HISTORY: As above. SOCIAL HISTORY: Patient denies smoking, ETOH or drug abuse. FAMILY HISTORY: Significant for father dying of heart attack at age 80. OBJECTIVE DATA: VITAL SIGNS: Blood pressure is 125/73, heart rate 60, respiration rate 16, temperature 98.3 degrees Fahrenheit. GENERAL: Alert and oriented man in no apparent distress. NECK: Supple. Jugular veins not distended. CHEST: Coarse without crackles. CARDIOVASCULAR: Heart sounds are regular to rate and rhythm. No murmur or gallop. ABDOMEN: Benign. Bowel sounds positive. EXTREMITIES: Lower extremities without edema, clubbing or cyanosis. Pulses are adequate. NEUROLOGIC: Patient is focal. MUSCULOSKELETAL: No joint swelling or deformity. SKIN: Without rash. Midsternal incision site is well healed. DATABASE: EKGs reviewed reveals sinus rhythm, no significant ST-T changes, rate is 58 beats per kiel te. QTC is somewhat prolonged at 467 milliseconds. LABORATORY DATA: White count is 10.7, hemoglobin 15, platelet count is 436. Sodium 138, potassium 4 , BUN 20, creatinine 1.08. Troponin I 0.019, 0.030, 0.014 and 0.039 consecutively. BNP is 223. The chest x-ray shows no evidence of cardiopulmonary disease process. ASSESSMENT AND PLAN: Mr. Alcaraz is a pleasant 57-year-old man with a history of recent extensive acti vation myocardial infarction and cardiogenic shock requiring emergent surgery and intraoperative aort ic balloon pumping. He also had transient atrial flutter which was well suppressed with amiodarone. He now returns with a syncopal spell. Based on the history it is likely to be vasovagal hypertensive episode, hence the recent hot shower that he was taking. On the other hand, arrhythmia episode bette ot be completely ruled out since he has not been wearing his LifeVest at that very moment and a near syncopal spell occurred. My plan would be at this point: 1. Syncope workup already initiated. At this point, I would continue telemetry monitoring. Monitor for bradycardia or torsades like arrhythmia. 2. It would be reasonable to reduce the amiodarone dose at this time. Monitor for further QT prolon gation, but at this point, it is reasonable to continue amiodarone at a lower dose. 3. History of cardiomyopathy, reduced LVEF currently without overt heart failure symptoms. Continue heart failure therapy and consider rechecking LVEF 3 months after bypass surgery to see if t he LVEF is less than 35%, less than or equal to 35%, then an ICD implantation should be considered. 4. Continue LifeVest monitoring on discharge. 5. Monitor orthostatic hypotension. 6. Coronary artery disease, currently stable. Doubt acute ischemia. 7. We will follow with you. Thank you for the consult.
[2017-08-22] MEDS: Potassium Chloride 10 MEQ TAB PO SCH ×2 (13:18→13:29)
[2017-08-22] MEDS: Carvedilol 3.125 MG TAB PO SCH ×2 (13:18→16:35)
[2017-08-22] MEDS: Furosemide 40 MG TAB PO SCH (13:26)
[2017-08-22] MEDS: Enoxaparin Sodium 40 MG/0.4 ML SYRINGE SC SCH (13:26)
[2017-08-22] MEDS: Aspirin 325 mg Enteric Coated Tablet PO SCH (13:26)
[2017-08-22] MEDS: Amiodarone 200 MG TAB PO SCH (13:30)
--- NOTE | 2017-08-22 14:37 | PDOC.PN ---
- Subjective Encounter Start Date: 08/22/17 Encounter Start Time: 14:36 Subjective: feels better. no dizziness/chest pain/sob - Objective MAR Reviewed: Yes Vital Signs & Weight: Vital Signs (12 hours) Temp Pulse Resp BP BP BP BP 08/22/17 11:37 97.7 F 58 L 16 138/68 08/22/17 09:20 117/72 119/70 114/66 08/22/17 08:22 97.7 F 60 16 08/22/17 08:08 97.7 F 60 16 102/56 L 08/22/17 03:58 98.6 F 58 L 14 102/58 L Pulse Ox 08/22/17 11:37 95 08/22/17 09:20 08/22/17 08:22 95 08/22/17 08:08 95 08/22/17 03:58 93 L Weight Weight 181 lb 4 oz Result Diagrams: 08/22/17 04:56 08/22/17 04:56 Additional Labs: Laboratory Tests 08/03/17 08/13/17 08/13/17 19:33 19:30 23:52 Troponin I 40.195 H* 0.095 H 0.099 H 08/21/17 08/21/17 08/21/17 13:21 15:30 18:23 Troponin I 0.019 0.030 H 0.014 08/21/17 21:02 Troponin I 0.039 H labs reviewed Phys Exam - Physical Examination Constitutional: NAD HEENT: PERRLA, moist MMs, sclera anicteric, oral pharynx no lesions Neck: no nodes, no JVD, supple, full ROM Respiratory: no wheezing, no rales, no rhonchi, clear to auscultation bilateral Cardiovascular: RRR, no significant murmur Gastrointestinal: soft, non-tender, no distention, positive bowel sounds Musculoskeletal: no edema, pulses present Neurological: non-focal, normal sensation, moves all 4 limbs Psychiatric: normal affect, A&O x 3 Skin: no rash Dx/Plan (1) Syncopal episodes Code(s): R55 - SYNCOPE AND COLLAPSE Status: Acute (2) Demand ischemia Code(s): I24.8 - OTHER FORMS OF ACUTE ISCHEMIC HEART DISEASE Status: Acute (3) Cardiomyopathy Code(s): I42.9 - CARDIOMYOPATHY, UNSPECIFIED Status: Chronic Qualifiers: Cardiomyopathy type: ischemic Qualified Code(s): I25.5 - Ischemic cardiomyopathy (4) Atrial tachycardia Code(s): I47.1 - SUPRAVENTRICULAR TACHYCARDIA Status: Chronic Comment: NSR for now (5) TAPAN (acute kidney injury) Code(s): N17.9 - ACUTE KIDNEY FAILURE, UNSPECIFIED Status: Acute (6) CAD (coronary artery disease) Code(s): I25.10 - ATHSCL HEART DISEASE OF [place] CORONARY ARTERY W/O ANG PCTRS Status: Chronic Qualifiers: Coronary Disease-Associated Artery/Lesion type: [place] artery [place] vs. transplanted heart: [place] heart Associated angina: without angina Qualified Code(s): I25.10 - Atherosclerotic heart disease of [place] coronary artery without angina pectoris (7) S/P CABG (coronary artery bypass graft) Code(s): Z95.1 - PRESENCE OF AORTOCORONARY BYPASS GRAFT Status: Chronic - Plan plan discussed w/ family, respiratory therapy, incentive spirometry, out of bed/ ambulate, DVT proph w/SCDs negative orthostatics.HR low-reduce amiodarone -: cont BB,ASA,statin,HSAUNA-I,lasix -: stop IVF as Cr improved. -: cardiology and EP input appreciated. -: hemodyanmiaclly stable.cont life vest * . Review of Systems - Review of Systems Constitutional: negative: fever, chills, sweats, weakness, malaise, other Respiratory: negative: Cough, Dry, Shortness of Breath, Hemoptysis, SOB with Excertion, Pleuritic Pain, Sputum, Wheezing Cardiovascular: negative: chest pain, palpitations, orthopnea, paroxysmal nocturnal dyspnea, edema, light headedness, other Gastrointestinal: negative: Nausea, Vomiting, Abdominal Pain, Diarrhea, Constipation, Melena, Hematochezia, Other Genitourinary: negative: Dysuria, Frequency, Incontinence, Hematuria, Retention , Other Musculoskeletal: negative: Neck Pain, Shoulder Pain, Arm Pain, Back Pain, Hand Pain, Leg Pain, Foot Pain, Other Skin: negative: Rash, Lesions, Nicholas, Bruising, Other Neurological: negative: Weakness, Numbness, Incoordination, Change in Speech, Confusion, Seizures, Other - Medications/Allergies Allergies/Adverse Reactions: Allergies Allergy/AdvReac Type Severity Reaction Status Date / Time No Known Allergies Allergy Verified 03/20/13 12:58 Medications: Current Medications Acetaminophen (Tylenol) 650 mg PO Q4H PRN PRN Reason: Headache/Fever or Pain Al Hydroxide/Mg Hydroxide (Maalox) 30 ml PO Q6H PRN PRN Reason: Heartburn or Indigestion Amiodarone HCl (Cordarone) 200 mg PO BID [facility] Stop: 09/05/17 23:59 Aspirin (Ecotrin) 325 mg PO DAILY [facility] Last Admin: 08/22/17 13:26 Dose: 325 mg Atorvastatin Calcium (Lipitor) [address] [facility] Last Admin: 08/21/17 21:19 Dose: 20 mg Benzonatate (Tessalon) 100 mg PO Q4H PRN PRN Reason: Cough Bisacodyl (Dulcolax) 10 mg PO DAILYPRN PRN PRN Reason: Constipation Bisacodyl (Dulcolax) 10 mg PO DAILYPRN PRN PRN Reason: Constipation Calcium Carbonate (Tums) 1,000 mg PO Q4H PRN PRN Reason: Heartburn or Indigestion [facility] Admin: 08/22/17 13:18 Dose: Not Given Clonidine (Catapres) 0.1 mg PO Q4H PRN PRN Reason: Systolic BP > 160 Enoxaparin Sodium (Lovenox) 40 mg SC 0900 [facility] Last Admin: 08/22/17 13:26 Dose: 40 mg Furosemide (Lasix) 40 mg PO DAILY [facility] Last Admin: 08/22/17 13:26 Dose: 40 mg Guaifenesin (Robitussin Sf) 200 mg PO Q4H PRN PRN Reason: Cough Hydralazine HCl (Apresoline) 10 mg SLOW IVP Q4H PRN PRN Reason: Systolic BP > 170 Sodium Chloride (Normal Saline 0.9%) 1,000 mls @ 75 mls/hr IV .[id number] [facility] Last Admin: 08/22/17 06:36 Dose: 1,000 mls Lisinopril (Zestril) 2.[address] [facility] Last Admin: 08/21/17 21:19 Dose: 2.5 mg Nitroglycerin (Nitrostat) 0.4 mg SL Q5MIN PRN PRN Reason: Chest Pain Nitroglycerin (Nitrostat) 0.4 mg SL Q5MIN PRN PRN Reason: Chest Pain Ondansetron HCl (Zofran) 4 mg IVP Q6H PRN PRN Reason: Nausea/Vomiting Potassium Chloride (Klor-Con 10) 10 meq PO QAM-[facility] Last Admin: 08/22/17 13:29 Dose: 10 meq Senna (Senokot) 2 tab PO HSPRN PRN PRN Reason: Constipation Senna (Senokot) 2 tab PO HSPRN PRN PRN Reason: Constipation Tramadol HCl (Ultram) 50 mg PO Q4H PRN PRN Reason: Moderate Pain (4-6)
--- NOTE | 2017-08-22 17:25 | PRG ---
DATE OF SERVICE: 08/22/2017 Allyson Oviedo, Nurse Practitioner dictating as scribe for Dr. Khang Santizo. SUBJECTIVE: Mr. Alcaraz is feeling well today. He denies any cardiac concerns or complaints. He abilio es any heart racing, palpitations, chest pain, pressure, syncope, near syncope, stroke or stroke-like symptoms. He is unsure of the dose of amiodarone that he was taking at home and will try to confirm it today. REVIEW OF SYSTEMS: A 10-point review of systems was conducted and is unremarkable except as listed a jessica in HPI. OBJECTIVE: VITAL SIGNS: Temperature 97.6, pulse 58, blood pressure 107/59, respirations 14, oxygen is 95% on ro om air. GENERAL: Patient is alert and oriented. HEAD: Normocephalic, atraumatic. His respirations are even and unlabored with good bilateral excurs ion. LUNGS: Clear to auscultation bilaterally without wheezes, crackles, or rhonchi. CARDIOVASCULAR: Rate is regularly irregular without murmur or gallop. PMI is nondisplaced. EXTREMITIES: Warm and dry to touch without clubbing, cyanosis or edema. IMPRESSION: 1. Questionable syncope and collapse related to orthostatic drop in blood pressure. 2. Paroxysmal atrial flutter postoperatively, currently on amiodarone and maintaining sinus rhythm. 3. Cardiomyopathy with a severely reduced ejection fraction, currently with a LifeVest. RECOMMENDATIONS: 1. Continue with LifeVest and revaluate ejection fraction in 3 months' time for ICD evaluation. 2. Continue amiodarone, but decrease to 200 mg daily.
[2017-08-22] MEDS ORDERED: Amiodarone 200 MG TAB PO SCH (21:00)
[2017-08-22] MEDS: Atorvastatin Calcium 20 MG TAB PO SCH (21:32)
[2017-08-22] MEDS: Lisinopril 2.5 MG TAB PO SCH (21:32)
--- NOTE | 2017-08-22 21:59 | CON ---
DATE OF CONSULT: 08/22/17 HISTORY OF PRESENT ILLNESS: This patient is a 57-year-old gentleman who presented after feeling weak and suddenly losing consciousness. The patient presented with an acute myocardial infarction on August 04. He underwent emergent catheterization. He was found to have severe three-vessel coronary artery disease. He underwent PTCA. He underwent subsequent coronary bypass graft surgery x3. The LAD was nonbypassable. Vein grafts were placed to both diagonals and to a ramus vessel. The patient was noted to have an ejection fraction of approximately 30-35%. A LifeVest was placed. He was also was placed on amiodarone for atrial flutter. The patient was in his usual state of health when in the shower, he felt lightheaded and suddenly lost consciousness. The patient did not have any chest pain or palpitations. PAST MEDICAL HISTORY: 1. Coronary artery disease. 2. Cardiomyopathy. 3. Atrial tachycardia/flutter. PAST SURGICAL HISTORY: Coronary bypass surgery. MEDICATIONS: See nursing. ALLERGIES: None. FAMILY HISTORY: Positive family history of heart disease. REVIEW OF SYSTEMS: Ten-point system otherwise unremarkable. PHYSICAL EXAMINATION: GENERAL: This is a well-developed gentleman in no acute distress. VITAL SIGNS: Blood pressure was 117/72 sitting, standing 119/70 supine was 114/ 66. NECK: No jugular distention. LUNGS: Clear to auscultation. HEART: Regular rate and rhythm, normal S1, S2, no murmurs. ABDOMEN: Nondistended. EXTREMITIES: Showed trace edema. LABORATORY RESULTS: White blood count 6.2, hemoglobin 12.8, hematocrit 38.9, his platelets are 366. His sodium was 138, potassium 4.0, chloride 108, Bicarbonate 24, UN 22, creatinine is 1.08, glucose is 0.039. BNP is 223. His EKG revealed a normal sinus rhythm with T waves suggestive of anterior ischemia. IMPRESSION: 1. Syncope, most likely orthostasis. 2. Status coronary bypass surgery. 3. Ischemic cardiomyopathy. 4. History of atrial flutter. This gentleman presented with a syncopal episode. He was not wearing his LifeVest at that time. A repeat echocardiogram has been obtained which showed no significant change in his ejection fraction.From a cardiac standpoint, he was on high dose amiodarone and this dose has been decreased. We will follow this patient with you through his hospitalization. Further recommendations to follow. MTDD
[2017-08-23] MEDS ORDERED: Amiodarone 200 MG TAB PO SCH (09:00)
[2017-08-23] MEDS: Carvedilol 3.125 MG TAB PO SCH (09:43)
[2017-08-23] MEDS: Aspirin 325 mg Enteric Coated Tablet PO SCH (09:44)
[2017-08-23] MEDS: Potassium Chloride 10 MEQ TAB PO SCH (09:44)
[2017-08-23] MEDS: Enoxaparin Sodium 40 MG/0.4 ML SYRINGE SC SCH (09:44)
[2017-08-23] MEDS: Furosemide 40 MG TAB PO SCH (09:51)
[2017-08-23 12:57] VITALS: BP 106/61; TEMP 98.4
--- NOTE | 2017-08-23 14:25 | EKG ---
Test Reason : Blood Pressure : / mmHG Vent. Rate : 058 BPM Atrial Rate : 058 BPM P-R Int : 142 ms QRS Dur : 084 ms QT Int : 476 ms P-R-T Axes : 036 020 096 degrees QTc Int : 467 ms Sinus bradycardia Possible Left atrial enlargement Low voltage QRS Cannot rule out Anterior infarct , age undetermined T wave abnormality, consider lateral ischemia Abnormal ECG New T wave inversions V2 - V6 Confirmed by WILLEM SHAW ([id number]), supervising editor news reel FLORENTINO RODRIGUEZ ([id number]) on 08/23/2017 2:25:09 PM Referred By: Confirmed By:WILLEM SHAW
--- NOTE | 2017-08-23 21:55 | DIS ---
DATE OF ADMISSION: 08/21/2017 DATE OF DISCHARGE: 08/23/2017 CONDITION AT THE TIME OF DISCHARGE: Stable and improved. DISCHARGE DIAGNOSES: 1. Syncope likely orthostatic hypotension versus bradycardia from amiodarone. Amiodarone dose has b een reduced. 2. Ischemic cardiomyopathy, currently on LifeVest. 3. History of atrial fibrillation and flutter, currently normal sinus rhythm. 4. Acute ST elevation myocardial infarction status post 3-vessel coronary artery bypass graft on . 5. Hypertension. DISCHARGE MEDICATIONS: Amiodarone dose has been decreased from 400 mg 3 times a day to 200 mg p.o. d aily, lisinopril 2.5 mg daily, nitroglycerin sublingual as needed, Klor-Con 10 mEq daily, aspirin 325 mg daily, atorvastatin, Lipitor 20 mg daily, Coreg 3.125 mg p.o. b.i.d. CONSULTATIONS INHOUSE: 1. Electrophysiology, Dr. Santizo. 2. Cardiology, Dr. Vieyra. PROCEDURES DONE IN THE HOSPITAL: Transthoracic echocardiogram, which shows ejection fraction is 35% to 40%, which is same in comparison to his echocardiogram done on 08/07/2017. PRIMARY CARE PHYSICIAN: Sandra Soto NP. HISTORY OF PRESENTING ILLNESS: Mr. Alcaraz is a 57-year-old male who recently has an acute ST elevatio n [place] and underwent emergent cardiac catheterization after he was found to have severe coronary artery disease on 08/03/2017. He was discharged with a LifeVest after being found to have cardiomyopathy w ith EF of 35% to 40%. He was also started on amiodarone, because he was found to have atrial tachyca rdia. He came to the emergency room after he almost passed out while taking a shower. Obviously, he was no t wearing his LifeVest at that time. Upon presentation, he was hemodynamically stable. A 12-lead EK G was unremarkable. Cardiac enzymes are normal. Elevation of BNP and on 04/11/2017 was noticed. He was admitted for further workup of near syncope. He had some evidence of acute renal insufficiency with creatinine of 1.38. Please see admission history and physical dictated by myself for further de tails. HOSPITAL COURSE: Cardiology and Electrophysiology was consulted because of the patient's presenting symptoms and extensive cardiac history. He was put on telemetry unit. Dr. Santizo saw the patient and his opinion was that he most likely has orthostatic hypotension. He was also noticed to be somewhat bradycardic and for this reason, his amiodarone was tapered to 200 mg daily. He was also seen by Cardiology, Dr. Vieyra, who agreed with the above evaluation. His echocardiogr am did not show any worsening of his cardiomyopathy. He was instructed to continue to LifeVest and d o not take any showers, but take sponge baths if necessary and do not take of the LifeVest at all. Jasen apodaca is also instructed to keep a blood pressure log and he has a followup appointment with Dr. Vieyra and Dr. Santizo, later next week. As of this morning, he is hemodynamically stable. No arrhythmias were noticed. He was not orthostat ic on evaluation in the hospital x2. He is being discharged after he has been cleared by Cardiology and EP. He was seen and examined prior to discharge. PHYSICAL EXAMINATION: VITAL SIGNS: This morning vital signs temperature 98.4, pulse of 63, respirations 18, saturating 95% on room air, blood pressure 106/61. GENERAL: No acute distress, awake, alert, and oriented x3. CHEST: Clear to auscultation without any wheezing, rales, or rhonchi. HEART: Rate and rhythm is regular without any murmur, rubs, or gallops. All questions were answered and discharge plan was discussed with the patient and his who verbalized understanding. New prescription for amiodarone 200 mg daily was provided to the patient. Total time spent in the discharge of this patient 32 minutes.
== END 2017-08-23 13:16 | disposition home or self-care (01) | DRG 281 ==
LOC: ERS 13:00 → 2NO 14:43
PROVIDERS: ADMIT Internal Medicine; ATTEND Internal Medicine
DX: I95.1 Orthostatic hypotension (principal); I21.3 ST elevation (STEMI) myocardial infarction of unspecified site; I47.1 Supraventricular tachycardia; N17.9 Acute kidney failure, unspecified; I50.32 Chronic diastolic (congestive) heart failure; R00.1 Bradycardia, unspecified; I25.5 Ischemic cardiomyopathy; Z95.1 Presence of aortocoronary bypass graft; I48.91 Unspecified atrial fibrillation; Z82.49 Family history of ischemic heart disease and other diseases of the circulatory system; I25.10 Atherosclerotic heart disease of native coronary artery without angina pectoris; I11.0 Hypertensive heart disease with heart failure; I08.1 Rheumatic disorders of both mitral and tricuspid valves
CPT/HCPCS: 36415; 71045; 80048; 80053; 81001; 82553; 83880; 84484; 85025; 93005; 93010; 93306; J1650

== ENCOUNTER 2017-08-30 04:42 | Observation (INO) | payer BC ==
[2017-08-30 05:19] LABS: #Basophils 0.1 thou/uL (0.0-0.2); #Eosinphils 0.4 thou/uL (0.0-0.7); #Lymphocytes 1.8 thou/uL (1.20-3.40); #Monocytes 0.5 thou/uL (0.11-0.59); #Neutrophils 3.7 thou/uL (1.40-6.50); %Basophils 1.1 % (0.0-1.0); %Lymphocytes 27.5 % (21.0-51.0); %Monocytes 7.9 % (0.0-10.0); %Neutrophils 57.4 % (42.0-75.0); Hemoglobin 14.7 g/dL (14.0-18.0); Mean Corpuscular HGB CONC 32.2 g/dL (32.0-36.0); Mean Corpuscular Hemoglobin 29.3 pg (27.0-31.0); Platelet Count 266 thou/uL (130-400); RBC Distribution Width 12.8 % (11.5-14.5); Red Blood Cell (RBC) Count 5.03 mill/uL (4.70-6.10); White Blood Cell (WBC) Count 6.5 thou/uL (4.8-10.8)
[2017-08-30 05:38] LABS: ALT (SGPT) 33 U/L (8-55); AST (SGOT) 18 U/L (5-34); Albumin 4.3 g/dL (3.5-5.0); Alkaline Phosphatase 85 U/L (40-150); Anion Gap 11 mmol/L (10-20); BUN (Urea Nitrogen) 20 mg/dL (8.4-25.7); Bilirubin, Total 0.8 mg/dL (0.2-1.2); CK (CPK) 36 U/L (30-200); Calc. Creatinine Clearance 0 mL/min (70-130); Calcium 9.8 mg/dL (7.8-10.44); Carbon Dioxide 26 mmol/L (22-29); Chloride 105 mmol/L (98-107); Estimated GFR-MDRD 64; Globulin 3.1 g/dL (2.4-3.5); Glucose 100 mg/dL (70-105); Potassium 4.2 mmol/L (3.5-5.1); Protein, Total 7.4 g/dL (6.0-8.3); Sodium 138 mmol/L (136-145)
[2017-08-30 05:43] LABS: CKMB 0.7 ng/mL (0-6.6); Troponin I Less than 0.010 ng/mL (< 0.028)
[2017-08-30 07:39] VITALS: BMI 28.8
--- NOTE | 2017-08-30 08:05 | RAD ---
PORTABLE CHEST: Date: 08/30/17 PROVIDED CLINICAL HISTORY: Chest pain. FINDINGS: Comparison made with the study dated 08/21/17. The cardiac and mediastinal silhouette is unchanged in appearance. Median sternotomy changes are note d. Opacity overlying the right lower lung zone may reflect parenchymal infiltrate. Left lung appears clear. No evidence for pleural fluid or pneumothorax. IMPRESSION: Possible right lower lung zone infiltrate. Correlate with concerns for pneumonia. Correlation with fo llow-up PA and lateral views recommended. POS: [facility]
[2017-08-30 08:51] LABS: Troponin I Less than 0.010 ng/mL (< 0.028)
[2017-08-30] MEDS ORDERED: Enoxaparin Sodium 40 MG/0.4 ML SYRINGE SC SCH (09:49)
[2017-08-30] MEDS ORDERED: Acetaminophen 325 MG TAB PO PRN (09:49)
[2017-08-30] MEDS ORDERED: HYDROcodone/Acetaminophen 5/325 mg Tablet PO PRN ×2 (09:49)
[2017-08-30] MEDS ORDERED: Ondansetron HCl/PF 4 MG/2 ML Vial IVP PRN (09:49)
[2017-08-30] MEDS ORDERED: Ondansetron ODT 4 MG TAB PO PRN (09:49)
[2017-08-30] MEDS ORDERED: Nitroglycerin 0.4 MG TAB (25 Tab Bottle) SL PRN (12:48)
[2017-08-30] MEDS ORDERED: Aspirin 325 mg Enteric Coated Tablet PO SCH (13:15)
[2017-08-30] MEDS ORDERED: Carvedilol 3.125 MG TAB PO SCH (13:15)
[2017-08-30] MEDS ORDERED: Famotidine 20 MG TAB PO SCH (13:15)
[2017-08-30] MEDS ORDERED: Potassium Chloride 10 MEQ TAB PO SCH (13:15)
[2017-08-30] MEDS ORDERED: Amiodarone 200 MG TAB PO SCH (13:15)
[2017-08-30] MEDS: Carvedilol 3.125 MG TAB PO SCH (17:41)
[2017-08-30] MEDS: Famotidine 20 MG TAB PO SCH (19:43)
[2017-08-30] MEDS ORDERED: Lisinopril 2.5 MG TAB PO SCH (21:00)
[2017-08-30] MEDS ORDERED: Atorvastatin Calcium 20 MG TAB PO SCH (21:00)
[2017-08-31] MEDS ORDERED: Potassium Chloride 10 MEQ TAB PO SCH (08:00)
[2017-08-31 08:02] VITALS: BP 105/66; TEMP 97.5
[2017-08-31] MEDS ORDERED: Aspirin 325 mg Enteric Coated Tablet PO SCH (09:00)
[2017-08-31] MEDS ORDERED: Amiodarone 200 MG TAB PO SCH (09:00)
[2017-08-31] MEDS: Famotidine 20 MG TAB PO SCH (09:06)
[2017-08-31] MEDS: Carvedilol 3.125 MG TAB PO SCH (09:06)
--- NOTE | 2017-08-31 18:17 | DIS ---
DATE OF ADMISSION: 08/30/2017 DATE OF DISCHARGE: 08/31/2017 CONDITION AT THE TIME OF DISCHARGE: Stable and improved. DISCHARGE DIAGNOSES: 1. Atypical pain in the chest, likely noncardiac secondary to LifeVest. 2. Ischemic cardiomyopathy with LifeVest on at this time. 3. Coronary artery disease and acute elevation myocardial infarction, status post 3-vessel coronary artery bypass graft on 08/03/2017. 4. Hypertension. 5. Recent hospitalization for syncope associated with the amiodarone. 6. 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 DISCHARGE MEDICATIONS: Remain the same as admission medication as follows: Klor-Con 10 mg daily, Ni trostat daily, lisinopril 2.5 mg daily, [place] 1 tablet as needed, Coreg 3.125 mg p.o. b.i.d., Lipitor 20 mg daily, aspirin 325 mg daily, amiodarone 200 mg daily. NEW MEDICINE: Nystatin topically b.i.d. PRIMARY CARE PHYSICIAN: [facility]. Please add involved letters. There is no admission H&P available for me to review at this time. Bola ramey reviewed the ER admission record for this patient. HISTORY OF PRESENT ILLNESS: Mr. Alcaraz is a pleasant 57-year-old male who was recently admitted to [facility] facility a few days ago and was discharged on 08/23/2017 after getting a workup for syncope; presen frank to the emergency room again with complaints of some pinching sensation and some chest pain in the left side of the chest. It was not associated with any shortness of breath, dizziness or lightheade dness. He described it as sharp in nature. His initial workup included EKG and cardiac enzymes, whi ch were unremarkable. He was admitted by Dr. Temple for further workup. Once again, H&P is not avai lable for me to review. The patient was seen and examined this morning and he is symptom free. Serial cardiac enzymes have b een done and are negative. He is hemodynamically stable and eager to go home. He was found to have a fungal infection under the LifeVest at the lower border for which he was put on Nystatin powder. Jasen apodaca has appointment with his cardiothoracic surgeon, Dr. Leyva tomorrow. He has already been evaluated by his metal pourer, Dr. Gaspar in between his last discharge in presentation to the hospital agai n yesterday. He has been given a clean bill of Health for now. He has an upcoming appointment with Dr. Santizo, his electrical service technician on 09/10/2017. At this time, reassurance is provided. No medication changes are made. The patient is instructed to continue to monitor his blood pressure and heart rate that he is doing at home. At this time, there is no indication for any further cardiac workup. He will follow up with Dr. Gaspar as necessary o r indicated. He was seen and examined prior to discharge. PHYSICAL EXAMINATION: VITAL SIGNS: Temperature 97.5, pulse of 56, respirations 16, saturating 92% on room air, blood press ure 105/66. No acute distress, awake, alert, oriented x3. CHEST: Clear to auscultation bilaterally without any wheezing, rales or rhonchi. Rate and rhythm is regular without any murmur, rubs or gallops. EXTREMITIES: Free of any cyanosis, clubbing, or edema.
== END 2017-08-31 11:26 | disposition home or self-care (01) ==
LOC: ERS 04:42 → 2SW 07:05
PROVIDERS: ADMIT Internal Medicine; ATTEND Internal Medicine
DX: R07.89 Other chest pain (principal); I25.5 Ischemic cardiomyopathy; I25.10 Atherosclerotic heart disease of native coronary artery without angina pectoris; I10 Essential (primary) hypertension; Z79.82 Long term (current) use of aspirin; Z79.899 Other long term (current) drug therapy
CPT/HCPCS: 36415; 71045; 80053; 82553; 83880; 84484; 85025; 93005; 93306; 96372; A4216; G0378; J1650

== ENCOUNTER 2017-09-24 09:44 | Emergency (ER) | payer BC ==
--- NOTE | 2017-09-24 10:18 | RAD ---
AP VIEW CHEST: 09/24/2017 HISTORY: Chest pain. COMPARISON: 08/30/2017 FINDINGS: AP view chest demonstrates sternotomy wires seen. The lungs are well aerated. No evidence of active intrathoracic disease is seen. No evidence of effusions, pneumonia, or pneumothorax is seen. IMPRESSION: Unremarkable anterior-posterior view chest. POS: [facility]
[2017-09-24 10:21] LABS: #Eosinphils 0.1 thou/uL (0.0-0.7); #Lymphocytes 1.7 thou/uL (1.20-3.40); #Monocytes 0.4 thou/uL (0.11-0.59); #Neutrophils 2.1 thou/uL (1.40-6.50); %Basophils 0.7 % (0.0-1.0); %Eosinophils 3.2 % (0.0-10.0); %Monocytes 8.6 % (0.0-10.0); %Neutrophils 48.5 % (42.0-75.0); Hemoglobin 16.1 g/dL (14.0-18.0); Mean Corpuscular Hemoglobin 29.7 pg (27.0-31.0); Mean Corpuscular Volume 90.1 fL (78.0-98.0); Mean Platelet Volume 8.3 fL (7.4-10.4); Platelet Count 246 thou/uL (130-400); RBC Distribution Width 12.6 % (11.5-14.5); Red Blood Cell (RBC) Count 5.42 mill/uL (4.70-6.10); White Blood Cell (WBC) Count 4.4 thou/uL (4.8-10.8)
[2017-09-24 10:44] LABS: ALT (SGPT) 30 U/L (8-55); AST (SGOT) 17 U/L (5-34); Albumin 4.6 g/dL (3.5-5.0); Alkaline Phosphatase 97 U/L (40-150); Anion Gap 12 mmol/L (10-20); BUN (Urea Nitrogen) 15 mg/dL (8.4-25.7); Bilirubin, Total 0.6 mg/dL (0.2-1.2); CK (CPK) 36 U/L (30-200); Calc. Creatinine Clearance 0 mL/min (70-130); Calcium 9.9 mg/dL (7.8-10.44); Carbon Dioxide 25 mmol/L (22-29); Chloride 107 mmol/L (98-107); Estimated GFR-MDRD 70; Globulin 3.3 g/dL (2.4-3.5); Glucose 97 mg/dL (70-105); Potassium 4.1 mmol/L (3.5-5.1); Protein, Total 7.9 g/dL (6.0-8.3); Sodium 140 mmol/L (136-145)
[2017-09-24 10:48] LABS: CKMB 0.7 ng/mL (0-6.6); Troponin I Less than 0.010 ng/mL (< 0.028)
[2017-09-24 13:46] LABS: CKMB 0.7 ng/mL (0-6.6); Troponin I 0.015 ng/mL (< 0.028)
== END 2017-09-24 14:00 | disposition home or self-care (01) ==
LOC: ERS 09:44
DX: R07.2 Precordial pain (principal); E78.5 Hyperlipidemia, unspecified; I10 Essential (primary) hypertension; I25.2 Old myocardial infarction; Z79.82 Long term (current) use of aspirin; Z79.899 Other long term (current) drug therapy
CPT/HCPCS: 36415; 71045; 80053; 82550; 82553; 83880; 84484; 85025; 93005

== ENCOUNTER 2017-10-14 09:04 | Emergency (ER) | payer BC ==
[2017-10-14 09:39] LABS: #Lymphocytes 0.9 thou/uL (1.20-3.40); #Monocytes 0.2 thou/uL (0.11-0.59); #Neutrophils 6.4 thou/uL (1.40-6.50); %Basophils 0.1 % (0.0-1.0); %Eosinophils 0.2 % (0.0-10.0); %Lymphocytes 11.7 % (21.0-51.0); %Monocytes 2.9 % (0.0-10.0); %Neutrophils 85.2 % (42.0-75.0); Hemoglobin 16.5 g/dL (14.0-18.0); Mean Corpuscular HGB CONC 33.6 g/dL (32.0-36.0); Mean Corpuscular Hemoglobin 29.7 pg (27.0-31.0); Mean Corpuscular Volume 88.5 fL (78.0-98.0); Mean Platelet Volume 8.2 fL (7.4-10.4); Platelet Count 254 thou/uL (130-400); RBC Distribution Width 12.7 % (11.5-14.5); Red Blood Cell (RBC) Count 5.55 mill/uL (4.70-6.10); White Blood Cell (WBC) Count 7.5 thou/uL (4.8-10.8)
[2017-10-14 10:04] LABS: ALT (SGPT) 37 U/L (8-55); AST (SGOT) 22 U/L (5-34); Albumin 4.7 g/dL (3.5-5.0); Alkaline Phosphatase 81 U/L (40-150); Anion Gap 15 mmol/L (10-20); BUN (Urea Nitrogen) 13 mg/dL (8.4-25.7); Bilirubin, Total 0.6 mg/dL (0.2-1.2); CK (CPK) 47 U/L (30-200); Calc. Creatinine Clearance 0 mL/min (70-130); Calcium 9.8 mg/dL (7.8-10.44); Carbon Dioxide 22 mmol/L (22-29); Chloride 105 mmol/L (98-107); Estimated GFR-MDRD 68; Globulin 3.4 g/dL (2.4-3.5); Glucose 154 mg/dL (70-105); Lipase 53 U/L (8-78); Potassium 4.3 mmol/L (3.5-5.1); Protein, Total 8.1 g/dL (6.0-8.3); Sodium 138 mmol/L (136-145)
[2017-10-14 10:09] LABS: CKMB 0.6 ng/mL (0-6.6); Troponin I Less than 0.010 ng/mL (< 0.028)
--- NOTE | 2017-10-14 11:59 | RAD ---
AP VIEW CHEST: INDICATIONS: Chest pain. COMPARISON: Prior exam dated 09/24/2017. FINDINGS: Stable post surgical change from prior CABG. No consolidation, pleural effusion, or pneumothorax is evident. There are multiple monitor leads overlying the patient. No acute osseous abnormality is gr ossly evident. There is persistent elevation of the right distal clavicle, consistent with prior AC joint injury. IMPRESSION: No acute cardiopulmonary abnormalities. POS: [facility]
[2017-10-14 14:43] LABS: Troponin I Less than 0.010 ng/mL (< 0.028)
--- NOTE | 2017-10-15 14:26 | EKG ---
Test Reason : Blood Pressure : / mmHG Vent. Rate : 070 BPM Atrial Rate : 070 BPM P-R Int : 132 ms QRS Dur : 090 ms QT Int : 408 ms P-R-T Axes : 055 068 114 degrees QTc Int : 440 ms Normal sinus rhythm Possible Left atrial enlargement Anterolateral infarct , age undetermined Abnormal ECG Confirmed by MIKEY TOLBERT, SINDY ([id number]), editor in chief newspaper ROBIN VO ([id number]) on 10/15/2017 2:26:10 PM Referred By: Confirmed By:SINDY JENSEN MD
== END 2017-10-14 15:06 | disposition home or self-care (01) ==
LOC: ERS 09:04
DX: R07.89 Other chest pain (principal); I10 Essential (primary) hypertension; E78.5 Hyperlipidemia, unspecified; I25.2 Old myocardial infarction; Z79.82 Long term (current) use of aspirin; Z79.899 Other long term (current) drug therapy
CPT/HCPCS: 36415; 71045; 80053; 82550; 82553; 83690; 84484; 85025; 93005; 94760

== ENCOUNTER 2018-10-15 09:30 | Outpatient (CLI) | payer BC ==
--- NOTE | 2018-10-15 12:27 | MRI ---
MRI OF THE LEFT SHOULDER: Date: 10/15/18 PROVIDED CLINICAL HISTORY: Left shoulder pain. FINDINGS: The components of the rotator cuff appear intact. The long head biceps tendon appears intact and is n ormally located. The glenoid labrum and glenohumeral articular cartilage are suboptimally evaluated in the absence of joint distention. There is signal alteration in region of the superior labrum that may reflect SLAP t ear. No focal glenohumeral articular cartilage defect is apparent. The amount of fluid within the glenohumeral joint appears physiologic. No significant subacromial/sub deltoid bursal fluid. Mild acromioclavicular joint osteoarthrosis with mild mass effect upon the subj acent supraspinatus. Rotator cuff muscular volume appears preserved. No focal concerning regional mar row or muscular signal abnormality apparent. IMPRESSION: 1. Findings suspicious for SLAP tear. 2. Acromioclavicular joint osteoarthrosis. POS: OFF
== END 2018-10-15 09:31 | disposition home or self-care (01) ==
LOC: SCSMRI 09:30
PROVIDERS: ATTEND Orthopaedic Surgery
DX: M75.102 Unspecified rotator cuff tear or rupture of left shoulder, not specified as traumatic (principal); M19.012 Primary osteoarthritis, left shoulder

== ENCOUNTER 2022-05-04 06:58 | Emergency (ER) | payer OTHER, BC ==
[2022-05-04] MEDS ORDERED: Ketorolac Tromethamine 30 MG/ML VIAL ONE (07:20)
== END 2022-05-04 08:02 | disposition home or self-care (01) ==
LOC: ERS 06:58
DX: S16.1XXA Strain of muscle, fascia and tendon at neck level, initial encounter (principal); S70.12XA Contusion of left thigh, initial encounter; I10 Essential (primary) hypertension; E78.00 Pure hypercholesterolemia, unspecified; I25.2 Old myocardial infarction; V58.0XXA Driver of pick-up truck or van injured in noncollision transport accident in nontraffic accident, initial encounter; Y92.410 Unspecified street and highway as the place of occurrence of the external cause; Z95.1 Presence of aortocoronary bypass graft
CPT/HCPCS: 70450; 71045; 72125; 96374; J1885

== ENCOUNTER 2023-12-19 17:55 | Emergency (ER) | payer BC ==
[2023-12-19 18:42] LABS: #Basophils 0.06 10x3/uL (0.0-0.2); %Eosinophils 3.5 % (0.0-10.0); %Lymphocytes 40.1 % (21.0-51.0); %Monocytes 9.2 % (0.0-10.0); Hemoglobin 15.9 g/dL (14.0-18.0); Mean Corpuscular HGB CONC 33.8 g/dL (32.0-36.0); Mean Corpuscular Volume 88.7 fL (78.0-98.0); Mean Platelet Volume 10.4 fL (7.4-10.4); Platelet Count 236 10x3/uL (130-400)
[2023-12-19 19:16] LABS: ALT (SGPT) 28 U/L (8-55); AST (SGOT) 24 U/L (5-34); Alkaline Phosphatase 71 U/L (40-110); Anion Gap 14 mmol/L (10-20); BUN (Urea Nitrogen) 18 mg/dL (8.4-25.7); Bilirubin, Total 0.5 mg/dL (0.2-1.2); Calc. Creatinine Clearance 0 mL/min (70-130); Calcium 9.1 mg/dL (7.8-10.44); Carbon Dioxide 23 mmol/L (23-31); Chloride 106 mmol/L (98-107); Estimated GFR 97; Globulin 3.4 g/dL (2.4-3.5); Glucose 88 mg/dL (80-115); Lipase 31 U/L (8-78); Potassium 4.4 mmol/L (3.5-5.1); Protein, Total 7.4 g/dL (5.8-8.1); Sodium 139 mmol/L (136-145)
[2023-12-19 22:42] LABS: Bacteria/HPF None Seen HPF (None Seen); Bilirubin Negative (Negative); Blood, Urine 1+ (Negative); CAUTI Indications for Culture Dysuria,urgency,freq; Clarity Clear (Clear); Glucose, Urine (Dipstick) Normal (Negative); Ketone, Urine Negative (Negative); Leukocyte Negative Leu/uL (Negative); Nitrite Negative (Negative); Protein, Urine (Dipstick) 20 mg/dL (Neg-Trace); RBC/HPF 0-3 HPF (0-3); Specific Gravity, Urine 1.011 (1.002-1.036); Squamous Epithelial 0-3 HPF (0-3); Urobilinogen Normal mg/dL (Less than 2); WBC/HPF 0-3 HPF (0-3)
[2023-12-19 22:43] LABS: Sperm/HPF 1+ HPF (None Seen)
[2023-12-19 22:44] LABS: Urine Culture Reflex No No
== END 2023-12-19 23:50 | disposition home or self-care (01) ==
LOC: ERS 17:55
DX: R35.0 Frequency of micturition (principal); I10 Essential (primary) hypertension; I25.2 Old myocardial infarction
CPT/HCPCS: 36415; 80053; 81001; 83690; 85025; 87086; 99283

== ENCOUNTER 2024-10-28 09:33 | Outpatient (CLI) | payer BC | END 2024-10-28 09:34 | disposition home or self-care (01) | LOC: CT 09:33 | PROVIDERS: ATTEND Urology | DX: R31.29 Other microscopic hematuria (principal); R93.89 Abnormal findings on diagnostic imaging of other specified body structures | CPT/HCPCS: 74178 ==